=== PATIENT | male | born 1940 | race Caucasian/White ===

== ENCOUNTER → 2017-02-06 | Outpatient (CLI) | payer MEDICARE ==
[~2017-02-06] MED LIST: DCS100C PO; DICY20TA10 PO; HYDR28CR10 TOP; HYDROCORT TP; IMP25T; MINE99OI TOP; NITR-65 PO; NYST TP; SENN1TAB76 PO; SKIN TOP; [UNRECOGNIZED DRUG - OTHER] TOP; [UNRECOGNIZED DRUG - OTHER] TP
--- NOTE | 2017-02-06 15:29 | Diagnostic Imaging Report ---
PA and lateral views of the chest. INDICATION: Cough and congestion. FINDINGS: The lungs appear clear. The heart size is at the upper limits of normal. There is no effusion or pneumothorax. The mediastinum and melissa appear unremarkable. There is thoracic spine scoliotic curvature seen. IMPRESSION: No acute process. Dictated by: Dictated on workstation # [id number]
== END ==
LOC: RAD 15:02
PROVIDERS: ATTEND Family Medicine
DX: R09.89 Other specified symptoms and signs involving the circulatory and respiratory systems (principal); R05 Cough
CPT/HCPCS: 71020

== ENCOUNTER → 2017-05-08 | Outpatient (CLI) | payer MEDICARE | LOC: CARD 15:22 | PROVIDERS: ATTEND Family Medicine | DX: I49.9 Cardiac arrhythmia, unspecified (principal) | CPT/HCPCS: 93005 ==

== ENCOUNTER 2018-05-24 11:11 | Inpatient (IN) | payer MEDICARE ==
[~2018-05-24] VITALS: Ht 188 cm; Wt 83.0 kg
[2018-05-24] MEDS ORDERED: LACTATED RINGERS 1,000 ML IV ONE (11:19)
[2018-05-24] MEDS ORDERED: DIPHENOXYLATE/ATROPINE 2.5MG/0.025MG (LOMOTIL) TAB PO ONE (11:30)
--- NOTE | 2018-05-24 11:31 | ED GI ---
General Stated Complaint: WEAKNESS;DIARRHEA Source of Information: Family Exam Limitations: No Limitations History of Present Illness Date Seen by Provider: May 24, 2018 Time Seen by Provider: 11:15 Initial Comments This 77-year-old gentleman is brought to the emergency room by his brother with complaints of profound diarrhea and weakness. Patient became rather weak after having diarrhea this morning and went to the ground on his knees without injury aside from bruising on his knees. Patient was unable to get up on his own power. His brother, with whom he lives, was eventually able to get him up and into the car to bring him to the emergency room. He is afebrile. There is no vomiting. Patient is nonverbal due to advanced dementia. He has not spoken in 5 years according to his brother. Allergies and Home Medications Allergies Coded Allergies: Latex, Natural Rubber (Verified Allergy, Severe, RASH AND INFLAMMED, ) Home Medications Docusate Sodium 100 Mg Cap, 100 MG PO TID, (Reported) Hydrocortisone/Oatmeal/Aloe/E 28.4 Gm Cream.gm., TOP TID PRN for OPEN SKIN ON LEGS, (Reported) Nitrofurantoin/Nitrofuran Mac 100 Mg Capsule, 1 EACH PO BID FOR INFECTION Prescribed by: TOMAS BARLOW on 05/29/14711 Petrolatum,White 99 Gm Oint...g., TOP TID PRN for RASH, (Reported) APPLY TO BOTTOM TO PREVENT RASH Senna 1 Ea Tablet, 1 EA PO DAILY Prescribed by: TOMAS BARLOW on 05/29/14711 [Skin Cream W/Moistzr] , TOP DAILY, (Reported) APPLY TO LEGS FOR DRY SKIN Patient Home Medication List Home Medication List Reviewed: Yes Review of Systems Review of Systems Constitutional: see HPI, weakness EENTM: No Symptoms Reported Respiratory: No Symptoms Reported Cardiovascular: No Symptoms Reported Gastrointestinal: See HPI Genitourinary: No Symptoms Reported Musculoskeletal: no symptoms reported Skin: no symptoms reported Psychiatric/Neurological: See HPI Endocrine: No Symptoms Reported Hematologic/Lymphatic: No Symptoms Reported Past [id number]-Bbtwkw-Dmdduv Hx Past Med/Social Hx: Reviewed and Corrections made Immunizations Up To Date Date of Pneumonia Vaccine: May 27, 2014 Date of Influenza Vaccine: May 27, 2014 Past Medical History Surgeries: Yes Eye Surgery, Joint Replacement Respiratory: No Cardiac: Yes High Cholesterol, Hypertension Neurological: Yes Dementia Reproductive Disorders: No Genitourinary: Yes (incontinence) Kidney Stones Gastrointestinal: Yes Chronic Constipation, Gall Bladder Disease Musculoskeletal: Yes Arthritis, Fractures Endocrine: No HEENT: Yes Cataract Cancer: No Psychosocial: No Family Medical History Alzheimer's disease 03 MOTHER Cataracts 09 BROTHER Family history: Diabetes mellitus 09 BROTHER GERD 09 BROTHER Hiatal hernia 03 MOTHER Hypertension 09 BROTHER Parkinson's disease 03 FATHER TIAs 03 FATHER Physical Exam Vital Signs Vital Signs - First Documented 05/24/18 11:20 Temp 99.3 Pulse 84 Resp 20 B/P (MAP) 149/88 (108) Pulse Ox 96 O2 Delivery Room Air Capillary Refill : Height/Weight/BMI Height: 6'1.00" Weight: 209lbs. 0.6oz. 94.569413ax; BMI Method:Stated General Appearance: WD/WN, no apparent distress, other (general weakness) HEENT: normal ENT inspection, pharynx normal, other (disfigurement of the right pupil, chronic) Neck: normal inspection Respiratory: lungs clear, normal breath sounds, no respiratory distress, no accessory muscle use Cardiovascular: regular rate, rhythm, no edema, no murmur Gastrointestinal: normal bowel sounds, non tender, soft Extremities: normal inspection, no pedal edema Neurologic/Psychiatric: equipment service lead II-XII nml as tested, no motor/sensory deficits, alert, normal mood/affect, oriented x 3 Skin: normal color, warm/dry, ecchymosis (small bruising on the knees) Progress/Results/Core Measures Results/Orders Lab Results Laboratory Tests Test 05/24/18 11:32 05/24/18 12:43 Range/Units White Blood Count 11.2 H 4.3-11.0 10^3/uL Red Blood Count 4.75 4.35-5.85 10^6/uL Hemoglobin 14.3 13.3-17.7 G/DL Hematocrit 44 40-54 % Mean Corpuscular Volume 92 80-99 FL Mean Corpuscular Hemoglobin 30 25-34 PG Mean Corpuscular Hemoglobin Concent 33 32-36 G/DL Red Cell Distribution Width 14.2 10.0-14.5 % Platelet Count 206 130-400 10^3/uL Mean Platelet Volume 9.4 7.4-10.4 FL Neutrophils (%) (Auto) 90 H 42-75 % Lymphocytes (%) (Auto) 4 L 12-44 % Monocytes (%) (Auto) 6 0-12 % Eosinophils (%) (Auto) 0 0-10 % Basophils (%) (Auto) 0 0-10 % Neutrophils # (Auto) 10.0 H 1.8-7.8 X 10^3 Lymphocytes # (Auto) 0.4 L 1.0-4.0 X 10^3 Monocytes # (Auto) 0.7 0.0-1.0 X 10^3 Eosinophils # (Auto) 0.0 0.0-0.3 10^3/uL Basophils # (Auto) 0.0 0.0-0.1 10^3/uL Neutrophils % (Manual) 85 % Lymphocytes % (Manual) 2 % Monocytes % (Manual) 13 % Blood Morphology Comment NORMAL Sodium Level 142 135-145 MMOL/L Potassium Level 4.3 3.6-5.0 MMOL/L Chloride Level 110 H 98-107 MMOL/L Carbon Dioxide Level 21 21-32 MMOL/L Anion Gap 11 5-14 MMOL/L Blood Urea Nitrogen 24 H 7-18 MG/DL Creatinine 1.44 H 0.60-1.30 MG/DL Estimat Glomerular Filtration Rate 48 BUN/Creatinine Ratio 17 Glucose Level 158 H 70-105 MG/DL Calcium Level 9.0 8.5-10.1 MG/DL Corrected Calcium 9.1 8.5-10.1 MG/DL Magnesium Level 2.1 1.8-2.4 MG/DL Total Bilirubin 0.9 0.1-1.0 MG/DL Aspartate Amino Transf (AST/SGOT) 20 5-34 U/L Alanine Aminotransferase (ALT/SGPT) 12 0-55 U/L Alkaline Phosphatase 71 40-136 U/L Total Protein 6.7 6.4-8.2 GM/DL Albumin 3.9 3.2-4.5 GM/DL Urine Color YELLOW Urine Clarity VERY CLOUDY H Urine pH 8 5-9 Urine Specific [place] 1.010 L 1.016-1.022 Urine Protein 3+ H NEGATIVE Urine Glucose (UA) NEGATIVE NEGATIVE Urine Ketones NEGATIVE NEGATIVE Urine Nitrite NEGATIVE NEGATIVE Urine Bilirubin NEGATIVE NEGATIVE Urine Urobilinogen NORMAL NORMAL MG/DL Urine Leukocyte Esterase 3+ H NEGATIVE Urine RBC (Auto) 4+ H NEGATIVE Urine RBC 50-100 H /HPF Urine WBC TNTC H /HPF Urine Crystals NONE /LPF Urine Bacteria LARGE H /HPF Urine Casts NONE /LPF Urine Mucus NEGATIVE /LPF Urine Culture Indicated YES My Orders Orders - KUN CASTILLO MD Cbc With Automated Diff (05/24/18 11:19) Comprehensive Metabolic Panel (05/24/18 11:19) Magnesium (05/24/18 11:19) Saline Lock/Iv-Start (05/24/18 11:19) Lactated Ringers (Lr 1000 Ml Iv Solution (05/24/18 11:19) Diphenoxylate/Atropine Tablet (Lomotil T (05/24/18 11:30) Manual Differential (05/24/18 11:32) Ns Iv 1000 Ml (Sodium Chloride 0.9%) (05/24/18 12:16) Ua Culture If Indicated (05/24/18 12:30) Lidocaine 2% (Urojet) (Xylocaine Urojet) (05/24/18 12:30) Urine Culture (05/24/18 12:43) Ceftriaxone For Iv Use (Rocephin For I (05/24/18 13:15) Medications Given in ED Current Medications Medications Dose Ordered Sig/Yan Route Start Time Stop Time Status Last Admin Dose Admin Diphenoxylate HCl/ Atropine 2 ea ONCE ONCE PO 05/24/18 11:30 05/24/18 11:31 DC 05/24/18 11:47 2 EA Lactated Ringer's 1,000 ml @ 0 mls/hr Q0M ONCE IV 05/24/18 11:19 05/24/18 11:22 DC 05/24/18 11:45 1,000 MLS/HR Lidocaine HCl 10 ml ONCE ONCE TOP 05/24/18 12:30 05/24/18 12:31 DC 05/24/18 12:45 10 ML Sodium Chloride 1,000 ml @ 0 mls/hr Q0M ONCE IV 05/24/18 12:16 05/24/18 12:17 DC 05/24/18 12:25 1,000 MLS/HR Vital Signs/I&O 05/24/18 11:20 Temp 99.3 Pulse 84 Resp 20 B/P (MAP) 149/88 (108) Pulse Ox 96 O2 Delivery Room Air Progress Progress Note : Progress Note Patient received 2 L of IV fluids. He exhibited some acute renal insufficiency. Catheter urine specimen was obtained and was strongly indicative of urinary tract infection. Rocephin was given. Lomotil was given for the diarrhea. Patient appeared happy and smiled throughout his ER stay. He had no further diarrhea to my knowledge while in the ER. Patient did require 2 person assist to get into the bed. I do not think his brother would be able to manage him at home and his present condition. Departure Impression Primary Impression: Urinary tract infection Qualified Codes: N39.0 - Urinary tract infection, site not specified Additional Impressions: Diarrhea Qualified Codes: R19.7 - Diarrhea, unspecified Generalized weakness Advanced dementia Renal insufficiency Disposition: ADMITTED INPATIENT Condition: Improved Admissions Decision to Admit Reason: Admit from ER (General) Decision to Admit/Date: May 24, 2018 Time/Decision to Admit Time: 13:12 Departure-Patient Inst. Referrals: STEPHANY BARLOW MD (PCP/Family) Primary Care Physician KUN CASTILLO MD May 24, 2018 11:31
[2018-05-24 11:43] LABS: BASOPHILS % (AUTO) 0 % (0-10); EOSINOPHILS % (AUTO) 0 % (0-10); HEMATOCRIT 44 % (40-54); HEMOGLOBIN 14.3 G/DL (13.3-17.7); LYMPHOCYTES # (AUTO) 0.4 X 10^3 (1.0-4.0); LYMPHOCYTES % (AUTO) 4 % (12-44); MEAN CORPUSCULAR HEMOGLOBIN 30 PG (25-34); MEAN CORPUSCULAR HGB CONC 33 G/DL (32-36); MEAN CORPUSCULAR VOLUME 92 FL (80-99); MEAN PLATELET VOLUME 9.4 FL (7.4-10.4); MONOCYTES # (AUTO) 0.7 X 10^3 (0.0-1.0); MONOCYTES % (AUTO) 6 % (0-12); NEUTROPHILS % (AUTO) 90 % (42-75); PLATELET COUNT 206 10^3/uL (130-400); RED CELL DISTRIBUTION WIDTH 14.2 % (10.0-14.5); WHITE BLOOD COUNT 11.2 10^3/uL (4.3-11.0)
[2018-05-24 12:01] LABS: ALBUMIN 3.9 GM/DL (3.2-4.5); BILIRUBIN,TOTAL 0.9 MG/DL (0.1-1.0); CREATININE SERUM 1.44 MG/DL (0.60-1.30); MAGNESIUM 2.1 MG/DL (1.8-2.4); POTASSIUM 4.3 MMOL/L (3.6-5.0); TOTAL PROTEIN 6.7 GM/DL (6.4-8.2)
[2018-05-24 12:11] LABS: LYMPHOCYTES % (MANUAL) 2 %; MONOCYTES % (MANUAL) 13 %; NEUTROPHILS % (MANUAL) 85 %; RBC MORPH NORMAL
[2018-05-24] MEDS ORDERED: NS IV 1000 ML 1,000 ML IV ONE (12:16)
[2018-05-24] MEDS ORDERED: LIDOCAINE UROJET 2% GEL 10 ML PKG TOP ONE (12:30)
[2018-05-24 12:49] LABS: BILIRUBIN,URINE NEGATIVE (NEGATIVE); CLARITY,URINE VERY CLOUDY; COLOR,URINE YELLOW; GLUCOSE, URINE (UA) NEGATIVE (NEGATIVE); KETONES,URINE NEGATIVE (NEGATIVE); LEUKOCYTE ESTERASE ,URINE 3+ (NEGATIVE); NITRITE,URINE NEGATIVE (NEGATIVE); PH,URINE 8 (5-9); PROTEIN,URINE 3+ (NEGATIVE); UROBILINOGEN,URINE NORMAL (NORMAL)
[2018-05-24 13:01] LABS: BACTERIA,URINE LARGE /HPF; RBC,URINE 50-100 /HPF; WBC,URINE TNTC /HPF
[2018-05-24] MEDS ORDERED: cefTRIAXone FOR IV USE 1,000 MG in WATER (STERILE) FOR INJECTION 10 ML IV ONE (13:15)
[2018-05-24 14:00] VITALS: BP 153/75
--- NOTE | 2018-05-24 14:00 | NUR ---
CHUCK BYNUM admitted to room 433-1, with an admitting diagnosis of UTI, on 05/24/18 from ED via [facility], accompanied by STAFF AND BROTHER. BYNUMCHUCK introduced to surroundings, call light, bed controls, phone, TV, temperature control, lights, meal times, smoking policy, visitor policy, side rail policy, bathrooms and showers. Patient Rights given to patient in the handbook. BROTHER OF CHUCK BYNUM Malena verbalizes understanding that [facility] is not responsible for the loss or damage to any personal effects or valuables that are kept in the patients posession during their hospitalization. The following Patient Care Plans were discussed with the BROTHER OF CHUCK BYNUM Malena : Discharge Planning,PAIN, AND UTI. BROTHER OF FLETCHERCHUCK Malena verbalizes understanding of Interdisciplinary Patient Education. Patient and/or family were informed about the Rapid Response Team and its purpose.
--- NOTE | 2018-05-24 14:30 | NUR ---
BROTHER LEFT. ALL ADMIT QUESTIONS FROM PAST MED HX.
[2018-05-24 14:37] VITALS: BP 153/75
--- NOTE | 2018-05-24 14:46 | History & Physical-Hospitalist ---
History of Present Illness HPI/Chief Complaint Pt is a 77yoCM with a PMH of dementia who presented to the ER due to weakness and diarrhea. He is nonverbal at baseline and his brother provides all history. This morning he woke up with profound diarrhea and was very weak. Brother states he was fine yesterday and this was a sudden change today. He was hardly able to get him up from the bathroom. He was able to get him to the ER via private vehicle but it required two people to get him from the car to the room. He was found to have a UTI and was incredibly weak still when he is normally able to ambulate with a walker. He was admitted for IV abx and therapy. Source: patient Date Seen 05/24/18 Time Seen by a Provider: 14:41 Attending Physician Ang Loyd MD PCP Hank Hernandez MD Referring Physician Date of Admission May 24, 2018 at 13:41 Home Medications & Allergies Home Medications Reviewed patient Home Medication Reconciliation performed by pharmacy medication reconciliations phone technician and/or nursing. Patients Allergies have been reviewed. Allergies Allergies Coded Allergies Latex, Natural Rubber (Verified Allergy, Severe, RASH AND INFLAMMED, 05/26/14) Past Dxetfpr-Pmqbvq-Jffeba Hx Past Med/Social Hx: Reviewed Nursing Past Med/Soc Hx Patient Social History Employed/Student: retired Recent Foreign Travel: No Contact w/other who traveled: No Recent Infectious Disease Expo: No Immunizations Up To Date Date of Pneumonia Vaccine: May 27, 2014 Date of Influenza Vaccine: May 27, 2014 Past Medical History Surgeries: Eye Surgery, Joint Replacement Cardiac: High Cholesterol, Hypertension Neurological: Dementia Reproductive: No Genitourinary: Kidney Stones Gastrointestinal: Chronic Constipation, Gall Bladder Disease Musculoskeletal: Arthritis, Fractures HEENT: Cataract History of Blood Disorders: No Family History Reviewed Nursing Family Hx Alzheimer's disease 03 MOTHER Cataracts 09 BROTHER Family history: Diabetes mellitus 09 BROTHER GERD 09 BROTHER Hiatal hernia 03 MOTHER Hypertension 09 BROTHER Parkinson's disease 03 FATHER TIAs 03 FATHER Review of Systems ROS-Unable to Obtain: patient nonverbal at baseline and demented Constitutional: see HPI Physical Exam Physical Exam Vital Signs Vital Signs - First Documented 05/24/18 11:20 Temp 99.3 Pulse 84 Resp 20 B/P (MAP) 149/88 (108) Pulse Ox 96 O2 Delivery Room Air Capillary Refill : Less Than 3 Seconds Height, Weight, BMI Height: 6'2.00" Weight: 220lbs. 0.6oz. 99.305845ri; BMI Method:Stated General Appearance: No Apparent Distress, Chronically ill, Thin HEENT: PERRL/EOMI, Normal ENT Inspection, Moist Mucous Membranes; No Scleral Icterus (L), No Scleral Icterus (R) Neck: Normal Inspection, Supple; No Thyromegaly Respiratory: Lungs Clear, No Accessory Muscle Use, No Respiratory Distress Cardiovascular: Regular Rate, Rhythm, No Murmur Gastrointestinal: Normal Bowel Sounds, Non Tender, Soft Extremity: Normal Capillary Refill, No Calf Tenderness Neurologic/Psychiatric: Alert, Other (nonverbal, oriented unable to be assessed ) Skin: Normal Color, Warm/Dry Results Results/Procedures Labs Laboratory Tests 05/24/18 11:32 Patient resulted labs reviewed. Assessment/Plan Admission Diagnosis UTI with generalized debility Admission Status: Inpatient Order (span 2 midnights) Reason for Inpatient Admission: unable to walk, will likely need more than two midnights to stabilize for DC Diagnosis/Problems Diagnosis/Problems (1) Urinary tract infection Status: Acute Assessment & Plan: Await cultures Continue Rocephin Add probiotics Does not meet sepsis criteria Qualifiers: Urinary tract infection type: site unspecified Hematuria presence: without hematuria Qualified Codes: N39.0 - Urinary tract infection, site not specified (2) Renal insufficiency Status: Acute Assessment & Plan: Likely JAZ from hypovolemia Last creatinine on file was 0.9 1.4 today Continue IVF (3) Generalized weakness Status: Acute Assessment & Plan: Normally ambulatory and unable to walk today PT/OT (4) Diarrhea Status: Acute Assessment & Plan: Imodium prn Consider c-diff if persists Probiotics Qualifiers: Diarrhea type: unspecified type Qualified Codes: R19.7 - Diarrhea, unspecified (5) Advanced dementia Status: Acute Assessment & Plan: Nonverbal at baseline Pleasantly confused ANG LOYD MD May 24, 2018 14:46
[2018-05-24] MEDS ORDERED: DOCU100C37 PO (15:20)
--- NOTE | 2018-05-24 15:25 | Physical Therapy Evaluation ---
PT Evaluation-General Medical Diagnosis Admission Date May 24, 2018 at 13:41 Medical Diagnosis: UTI, diarrhea, dementia, weakness Onset Date: May 24, 2018 Therapy Diagnosis Therapy Diagnosis: impaired mobility Height/Weight Height (Feet): 6 Height (Inches): 2.00 Weight (Pounds): 183 Weight (Ounces): 0.0 Precautions Precautions/Isolations: Standard Precautions Referral Physician: Sariah Loyd MD Reason for Referral: Evaluation/Treatment Medical History Pertinent Medical History: Arthritis, Dementia, HTN Additional Medical History high cholesterol, kidney stones, chronic constipation, gall bladder disease, cataracts, surg (eye, joint replacement) Current History patient went to the ER with weakness and diarrhea Social History unknown, patient is non-verbal Prior/Core FIM Prior Level of Function Therapy Code Descriptions/Definitions Functional [place] Measure: 0=Not Assessed/NA 4=Minimal Assistance 1=Total Assistance 5=Supervision or Setup 2=Maximal Assistance 6=Modified [place] 3=Moderate Assistance 7=Complete [place] Therapy Quality Codes: 6 Independent with activity with or without an assistive device 5 Patient requires set up or clean up by helper. Patient completes activity by themselves 4 Supervision or touching assist (CGA). [place] provide cues , steadying assist 3 The helper provides less than half the effort to complete the activity 2 The helper provides more than half the effort to complete the activity 1 Dependent. The helper does all the effort to complete an activity 7 Patient refused to complete or attempt activity 9 The patient did not perform the activity before the current illness or injury 88 Not attempted due to Medical conditions or safety concerns Functional Abilities and Goals: Independent: Patient completed the activities by him/herself, with or without an assistive device, with no assistance from a helper. Needed Some Help: Patient needed partial assistance from another person to complete activities. Dependent: A helper completed the activities for the patient. Unknown: Not Applicable: unknown PT Evaluation-Current Subjective Patient in bed pre tx, seems to indicate that he will participate with PT but he is non-verbal. He nods his head yes when asked if he will participate with PT. Patient nods head yes when asked if he has pain and points to his knees when asked where. Objective Patient Orientation: Unable to Assess Transfers Therapy Code Descriptions/Definitions Functional [place] Measure: 0=Not Assessed/NA 4=Minimal Assistance 1=Total Assistance 5=Supervision or Setup 2=Maximal Assistance 6=Modified [place] 3=Moderate Assistance 7=Complete [place] Transfers (B, C, W/C) (FIM): 3 Scootin Rollin Supine to/from Sit: 3 Patient sits on the edge of the bed with assist, he refuses to stand at this time and points to his knees, seeming to indicate that it hurts his knees too much to stand. Patient only sits at the bedside for a minute before insisting that he lay back down. Balance Sitting Static: Fair Sitting Dynamic: Fair Assessment/Needs Patient is non-verbal but is able to indicate that he has pain in both knees. He needs mod assist to sit at the edge of the bed. Patient does not follow directions for strength testing and cannot participate in sensation testing. Patient back to bed post tx with nurse call, phone, tray, bed alarm on. Rehab Potential: Guarded PT Short Term Goals Short Term Goals Time Frame: May 31, 2018 Transfers (B,C,W/C) (FIM): 4 Gait (FIM): 1 Gait Distance Comment: 10' Gait Level of Assist: 4 Gait Assistive Device: FWW PT Plan Problem List Problem List: Activity Tolerance, Functional Strength, Safety, Balance, Gait, Transfer, Bed Mobility, ROM Treatment/Plan Treatment Plan: Continue Plan of Care Treatment Plan: Bed Mobility, Concurrent Therapy, Education, Functional Activity [place], Functional Strength, Gait, Safety, Therapeutic Exercise, Transfers Treatment Duration: May 31, 2018 Frequency: 6 times per week Estimated Hrs Per Day: .25 hour per day (15-30') Patient and/or Family Agrees t: Yes Safety Risks/Education Patient Education: Transfer Techniques, Correct Positioning, Safety Issues Teaching Recipient: Patient Teaching Methods: Demonstration, Discussion Response to Teaching: Reinforcement Needed Discharge Recommendations Plan Patient will perform bed mobility and transfer training, balance and endurance training, functional strengthening, gait training, and education, to improve functional mobility and independence at home. Therapy D/C Recommendations: Home w/ Family Support Time/GCodes Time In: 1505 Time Out: 1516 Total Billed Treatment Time: 11 Total Billed Treatment 1 visit CHRIS 11' BRETT BRIONES PT May 24, 2018 15:25
[2018-05-24] MEDS ORDERED: LOPERAMIDE 2 MG (IMODIUM) CAP PO PRN (15:45)
[2018-05-24] MEDS ORDERED: ZINC OXIDE 16% OINT (BUTT PASTE) 113 GM TUBE TOP PRN (15:45)
[2018-05-24] MEDS ORDERED: BENZONATATE 100 MG (TESSALON) CAPSULE PO PRN (16:00)
[2018-05-24] MEDS ORDERED: MILK OF MAGNESIA 400 MG/5 ML 30 ML UDC PO PRN (16:00)
[2018-05-24] MEDS ORDERED: ONDANSETRON 4 MG/2 ML (SDV) Z0FRAN IV PRN ×2 (16:00→16:30)
[2018-05-24] MEDS ORDERED: ANTACID SUSP 30 ML UDC (MYLANTA) PO PRN (16:00)
[2018-05-24] MEDS ORDERED: ACETAMINOPHEN 325 MG TABLET PO PRN (16:00)
[2018-05-24 16:07] VITALS: BP 156/70
[2018-05-24] MEDS ORDERED: FLU QUADRIvalent (5+ YOA) 2018-2019 (AFLURIA) 0.5 ML IM ONE (16:30)
[2018-05-24] MEDS ORDERED: DIPHENOXYLATE/ATROPINE 2.5MG/0.025MG (LOMOTIL) TAB PO PRN (16:30)
[2018-05-24] MEDS: LACTOBACILLUS ACIDOPHILUS (PROBIOTIC) CAPSULE PO SCH (16:57)
[2018-05-24] MEDS: NS IV 1000 ML 1,000 ML IV SCH (16:57)
[2018-05-24 19:25] VITALS: BP 139/64
[2018-05-24] MEDS: MELATONIN 3 MG TABLET PO PRN (22:14)
[2018-05-24 23:16] VITALS: BP 132/60
[2018-05-25] MEDS: NS IV 1000 ML 1,000 ML IV SCH ×2 (00:41→08:37)
[2018-05-25 03:25] VITALS: BP 119/67
[2018-05-25] MEDS: LACTOBACILLUS ACIDOPHILUS (PROBIOTIC) CAPSULE PO SCH ×3 (06:06→17:13)
[2018-05-25 08:00] VITALS: BP 153/71
--- NOTE | 2018-05-25 10:56 | Physical Therapy Daily Note ---
PT Daily Note-Current Subjective Patient is non verbal, however, does agree to up in recliner. Mental Status Patient Orientation: Non-Verbal/Aphasic Attachments: IV Transfers Therapy Code Descriptions/Definitions Functional [place] Measure: 0=Not Assessed/NA 4=Minimal Assistance 1=Total Assistance 5=Supervision or Setup 2=Maximal Assistance 6=Modified [place] 3=Moderate Assistance 7=Complete [place] Therapy Quality Codes: 6 Independent with activity with or without an assistive device 5 Patient requires set up or clean up by helper. Patient completes activity by themselves 4 Supervision or touching assist (CGA). [place] provide cues , steadying assist 3 The helper provides less than half the effort to complete the activity 2 The helper provides more than half the effort to complete the activity 1 Dependent. The helper does all the effort to complete an activity 7 Patient refused to complete or attempt activity 9 The patient did not perform the activity before the current illness or injury 88 Not attempted due to Medical conditions or safety concerns Transfers (B, C, W/C) (FIM): 4 Scootin Rollin Supine to/from Sit: 5 Sit to/from Stand: 4 Bed to/from Chair: 4 Gait Training Gait (FIM): 1 Distance (FIM): 1=up to 49 ft Distance: 5' Gait Level of Assist: 4 Gait Persons Needed: 1 Gait Assistive Device: None declined to use FWW and ambulate, however, did to chair Exercises Seated Therapy Exercises: Ankle pumps, Long arc quads, Hip flexion Seated Reps: 15 (AAROM initially to demonstrate exercise/AROM after demonstration) Assessment Patient is up in recliner and RN in to place chair alarm secondary to patient is impulsive and unaware of safety concerns. PT Short Term Goals Short Term Goals Time Frame: May 31, 2018 Transfers (B,C,W/C) (FIM): 4 Gait (FIM): 1 Gait Distance Comment: 10' Gait Level of Assist: 4 Gait Assistive Device: FWW PT Plan Treatment/Plan Treatment Plan: Continue Plan of Care Treatment Plan: Bed Mobility, Concurrent Therapy, Education, Functional Activity [place], Functional Strength, Gait, Safety, Therapeutic Exercise, Transfers Treatment Duration: May 31, 2018 Frequency: 6 times per week Estimated Hrs Per Day: .25 hour per day (15-30') Patient and/or Family Agrees t: Yes Time/GCodes Time In: 1000 Time Out: 1008 Total Billed Treatment Time: 8 Total Billed Treatment 1 visit FA 8 min RENATO CHAVEZ PT May 25, 2018 10:56
[2018-05-25] MEDS ORDERED: FUROSEMIDE 40 MG/4 ML INJ (LASIX) IVP NR (11:15)
[2018-05-25] MEDS ORDERED: amLODIPine 2.5MG (NORVASC) TAB PO NR (11:15)
--- NOTE | 2018-05-25 11:23 | Progress Note-Hospitalist ---
Subjective HPI/CC On Admission Date Seen by Provider: May 25, 2018 Time Seen by Provider: 11:19 Pt is a 77yoCM with a PMH of dementia who presented to the ER due to weakness and diarrhea. He is nonverbal at baseline and his brother provides all history. This morning he woke up with profound diarrhea and was very weak. Brother states he was fine yesterday and this was a sudden change today. He was hardly able to get him up from the bathroom. He was able to get him to the ER via private vehicle but it required two people to get him from the car to the room. He was found to have a UTI and was incredibly weak still when he is normally able to ambulate with a walker. He was admitted for IV abx and therapy. Subjective/Events-last exam Pt is sitting up in chair. Non verbal. No ROS possible. Objective Exam Vital Signs Vital Signs Date Time Temp Pulse Resp B/P (MAP) Pulse Ox O2 Delivery O2 Flow Rate FiO2 05/25/18 08:27 Room Air 05/25/18 08:00 97.6 81 18 153/71 (98) 94 Capillary Refill : Less Than 3 SecondsLess Than 3 Seconds General Appearance: No Apparent Distress, Chronically ill, Thin Neck: No Thyromegaly Respiratory: Lungs Clear, No Accessory Muscle Use, No Respiratory Distress Cardiovascular: Regular Rate, Rhythm, No Murmur Gastrointestinal: Normal Bowel Sounds, Non Tender, Soft Neurologic/Psychiatric: Alert, Other (nonverbal, orientation unable to be assessed) Results/Procedures Lab Laboratory Tests 05/24/18 11:32 Patient resulted labs reviewed. Assessment/Plan Assessment and Plan Assess & Plan/Chief Complaint UTI Diagnosis/Problems Diagnosis/Problems (1) Urinary tract infection Status: Acute Assessment & Plan: Cultures pending Continue Rocephin Continue probiotics Does not meet sepsis criteria Qualifiers: Urinary tract infection type: site unspecified Hematuria presence: without hematuria Qualified Codes: N39.0 - Urinary tract infection, site not specified (2) Renal insufficiency Status: Acute Assessment & Plan: Check in AM (3) Generalized weakness Status: Acute Assessment & Plan: Continue PT/OT clinical services assistant consulted- may need placement (4) Diarrhea Status: Acute Assessment & Plan: Imodium prn Probiotics Qualifiers: Diarrhea type: unspecified type Qualified Codes: R19.7 - Diarrhea, unspecified (5) Advanced dementia Status: Acute Assessment & Plan: Nonverbal at baseline Pleasantly confused Clinical Quality Measures DVT/VTE Risk/Contraindication: Risk Factor Score Per Nursin RFS Level Per Nursing on Admit: 4+=Very High ANG ERVIN MD May 25, 2018 11:23
[2018-05-25 12:00] VITALS: BP 146/65
[2018-05-25] MEDS: cefTRIAXone 1,000 MG/SWFI 10 ML IV PUSH IV SCH ×2 (13:02)
--- NOTE | 2018-05-25 14:14 | Occupational Therapy Eval ---
OT Evaluation-General/PLF Medical Diagnosis Admission Date May 24, 2018 at 13:41 Medical Diagnosis: UTI, diarrhea, dementia, weakness Onset Date: May 24, 2018 Therapy Diagnosis Therapy Diagnosis: debility Height/Weight Height (Feet): 6 Height (Inches): 2.00 Weight (Pounds): 183 Weight (Ounces): 0.0 Precautions Precautions/Isolations: Fall Prevention, Standard Precautions Safety Interventions: Bed Exit Alarm Referral Physician: Sariah Loyd MD Medical History Pertinent Medical History: Arthritis, Dementia, HTN Additional Medical History high cholesterol, kidney stones, chronic constipation, gallbladder disease, cataracts Current History Pt admitted with UTI, diarrhea, and weakness Reviewed History: Yes ADL-Prior Level of Function Therapy Code Descriptions/Definitions Functional [place] Measure: 0=Not Assessed/NA 4=Minimal Assistance 1=Total Assistance 5=Supervision or Setup 2=Maximal Assistance 6=Modified [place] 3=Moderate Assistance 7=Complete [place] Therapy Quality Codes: 6 Independent with activity with or without an assistive device 5 Patient requires set up or clean up by helper. Patient completes activity by themselves 4 Supervision or touching assist (CGA). [place] provide cues , steadying assist 3 The helper provides less than half the effort to complete the activity 2 The helper provides more than half the effort to complete the activity 1 Dependent. The helper does all the effort to complete an activity 7 Patient refused to complete or attempt activity 9 The patient did not perform the activity before the current illness or injury 88 Not attempted due to Medical conditions or safety concerns Functional Abilities and Goals: Independent: Patient completed the activities by him/herself, with or without an assistive device, with no assistance from a helper. Needed Some Help: Patient needed partial assistance from another person to complete activities. Dependent: A helper completed the activities for the patient. Unknown: Not Applicable: ADL PLOF Comments Pt is non-verbal and unable to provide any information regarding PLOF. RN states pt lives with brother who is his caregiver. Self Care: Unknown Functional Cognition: Unknown OT Current Status Subjective Pt in bed. Pt is nonverbal, but nods head when asked to participate in therapy. Mental Status/Objective Patient Orientation: Unable to Assess Current Upper Extremity ROM Pt unable to follow simple commands for ROM testing. Pt allows PROM of UE which appears to be grossly functional. Pt moves UE spontaneously. Upper Extremity Strength Pt unable to follow commands for MMT ADL-Treatment ADL-Current RN reports pt is able to feed himself, but makes a mess. Per RN report pt has been incontinent and gown and linens were just changed with total assist. When given a washcloth, pt is able to wash face without assist. Attempted to have pt sit EOB, but pt resists movement and shakes head "no." Pt is nonverbal and is unable to answer questions. Pt occasionally points at things, but is unable to express further. Pt resting in bed with needs met after session. Therapy Code Descriptions/Definitions Functional [place] Measure: 0=Not Assessed/NA 4=Minimal Assistance 1=Total Assistance 5=Supervision or Setup 2=Maximal Assistance 6=Modified [place] 3=Moderate Assistance 7=Complete [place] Therapy Quality Codes: 6 Independent with activity with or without an assistive device 5 Patient requires set up or clean up by helper. Patient completes activity by themselves 4 Supervision or touching assist (CGA). [place] provide cues , steadying assist 3 The helper provides less than half the effort to complete the activity 2 The helper provides more than half the effort to complete the activity 1 Dependent. The helper does all the effort to complete an activity 7 Patient refused to complete or attempt activity 9 The patient did not perform the activity before the current illness or injury 88 Not attempted due to Medical conditions or safety concerns OT Education/Plan Problem List/Assessment Assessment: No Skilled OT Needs ID'd Pt admitted to hospital with UTI, diarrhea, and weakness. Pt is able to feed himself and wash face with set up. Pt does not follow simple commands or participate in any other functional activities during evaluation. Therefore, no skilled OT is indicated at this time. Will d/c OT. Discharge Recommendations Plan/Recommendations: Discontinue OT Treatment Plan/Plan of Care Treatment Duration: May 25, 2018 Frequency: 1 time per week (one time-evaluation only) Estimated Hrs Per Day: Other (evaluation only) Rehab Potential: Guarded Time/GCodes Start Time: 09:40 Stop Time: 09:55 Total Time Billed (hr/min): 15 Billed Treatment Time 1 visit, CHRIS(15minutes) CLARA PARRA OT May 25, 2018 14:14
[2018-05-25 16:00] VITALS: BP 145/62
--- NOTE | 2018-05-25 16:43 | NUR ---
INCREASED CONFUSION AND GETTING UP OUT OF CHAIR AND OUT OF BED. SETTING BED AND CHAIR ALARM OFF FREQUENTLY. REQUIRES STAFF TO BE CLOSE PT VERY UNSTEADY ON FEET.
--- NOTE | 2018-05-25 17:12 | NUR ---
CONTINUES TO GET IN AND OUT OF BED BY SELF, SETTING OFF ALARM. TANGLED IN SHEETS AND THIS RN JUST CAUGHT PT AND GOT HIM SITUATED IN CHAIR. [employer] CONTRACTOR NOTIFIED. PT MADE 1:1.
--- NOTE | 2018-05-25 18:37 | NUR ---
REMAINS VERY FIDGETY, BUT NOT TRYING TO GET UP AND DOWN BY SELF WITH SITTER AT BEDSIDE.
[2018-05-25 20:15] VITALS: BP 141/63
[2018-05-25] MEDS: MELATONIN 3 MG TABLET PO PRN (20:45)
[2018-05-25 23:09] VITALS: BP 140/61
[2018-05-26 03:13] VITALS: BP 149/70
[2018-05-26] MEDS: LACTOBACILLUS ACIDOPHILUS (PROBIOTIC) CAPSULE PO SCH ×3 (05:43→17:30)
[2018-05-26 05:46] LABS: BASOPHILS % (AUTO) 0 % (0-10); EOSINOPHILS # (AUTO) 0.1 10^3/uL (0.0-0.3); EOSINOPHILS % (AUTO) 1 % (0-10); HEMATOCRIT 37 % (40-54); HEMOGLOBIN 12.4 G/DL (13.3-17.7); LYMPHOCYTES # (AUTO) 0.9 X 10^3 (1.0-4.0); LYMPHOCYTES % (AUTO) 11 % (12-44); MEAN CORPUSCULAR HEMOGLOBIN 31 PG (25-34); MEAN CORPUSCULAR HGB CONC 33 G/DL (32-36); MEAN CORPUSCULAR VOLUME 92 FL (80-99); MEAN PLATELET VOLUME 9.5 FL (7.4-10.4); MONOCYTES # (AUTO) 0.8 X 10^3 (0.0-1.0); MONOCYTES % (AUTO) 9 % (0-12); NEUTROPHILS # (AUTO) 6.9 X 10^3 (1.8-7.8); NEUTROPHILS % (AUTO) 79 % (42-75); PLATELET COUNT 172 10^3/uL (130-400); WHITE BLOOD COUNT 8.8 10^3/uL (4.3-11.0)
[2018-05-26 06:07] LABS: BUN/CREATININE RATIO 22; CALCIUM 8.5 MG/DL (8.5-10.1); CARBON DIOXIDE 20 MMOL/L (21-32); CHLORIDE 112 MMOL/L (98-107); CREATININE SERUM 0.74 MG/DL (0.60-1.30); GFR ESTIMATED > 60; GLUCOSE 103 MG/DL (70-105); POTASSIUM 3.7 MMOL/L (3.6-5.0); SODIUM 140 MMOL/L (135-145)
[2018-05-26 08:00] VITALS: BP 160/70
--- NOTE | 2018-05-26 09:35 | Progress Note-Hospitalist ---
Subjective HPI/CC On Admission Date Seen by Provider: May 26, 2018 Time Seen by Provider: 09:31 Pt is a 77yoCM with a PMH of dementia who presented to the ER due to weakness and diarrhea. He is nonverbal at baseline and his brother provides all history. This morning he woke up with profound diarrhea and was very weak. Brother states he was fine yesterday and this was a sudden change today. He was hardly able to get him up from the bathroom. He was able to get him to the ER via private vehicle but it required two people to get him from the car to the room. He was found to have a UTI and was incredibly weak still when he is normally able to ambulate with a walker. He was admitted for IV abx and therapy. Subjective/Events-last exam Pt laying in bed. Pleasantly confused. Unable to participate in ROS. Objective Exam Vital Signs Vital Signs Date Time Temp Pulse Resp B/P (MAP) Pulse Ox O2 Delivery O2 Flow Rate FiO2 05/26/18 08:00 98.6 69 22 160/70 (100) 98 Room Air Capillary Refill : Less Than 3 SecondsLess Than 3 Seconds General Appearance: No Apparent Distress, Chronically ill, Thin Neck: No Thyromegaly Respiratory: Lungs Clear, No Accessory Muscle Use, No Respiratory Distress Cardiovascular: Regular Rate, Rhythm, No Murmur Gastrointestinal: Normal Bowel Sounds, Non Tender, Soft Extremity: No Calf Tenderness, No Pedal Edema Neurologic/Psychiatric: Alert, Other (nonverbal, orientation unable to be assessed) Results/Procedures Lab Laboratory Tests 05/26/18 05:34 Patient resulted labs reviewed. Assessment/Plan Assessment and Plan Assess & Plan/Chief Complaint UTI Diagnosis/Problems Diagnosis/Problems (1) Urinary tract infection Status: Acute Assessment & Plan: Cultures growing proteus sensitivities pending Continue Rocephin Continue probiotics Does not meet sepsis criteria Qualifiers: Urinary tract infection type: site unspecified Hematuria presence: without hematuria Qualified Codes: N39.0 - Urinary tract infection, site not specified (2) Generalized weakness Status: Acute Assessment & Plan: Continue PT/OT pharmacy services representative consulted- may need placement (3) Renal insufficiency Status: Acute Assessment & Plan: Resolved (4) Diarrhea Status: Acute Assessment & Plan: Imodium prn Probiotics Qualifiers: Diarrhea type: unspecified type Qualified Codes: R19.7 - Diarrhea, unspecified (5) Advanced dementia Status: Acute Assessment & Plan: Nonverbal at baseline Pleasantly confused Clinical Quality Measures DVT/VTE Risk/Contraindication: Risk Factor Score Per Nursin RFS Level Per Nursing on Admit: 4+=Very High ANG ERVIN MD May 26, 2018 09:35
--- NOTE | 2018-05-26 10:00 | NUR ---
SITTER AT BEDSIDE, TRIES TO GET UP BY SELF, BED ALARM ON, USING URINAL CLEAR YELLOW URINE
[2018-05-26] MEDS: cefTRIAXone 1,000 MG/SWFI 10 ML IV PUSH IV SCH ×2 (11:42)
[2018-05-26 11:56] VITALS: BP 149/97
--- NOTE | 2018-05-26 11:58 | Physical Therapy Daily Note ---
PT Daily Note-Current Subjective Sitter reports he tries to get out of bed when not attended. Transfers Therapy Code Descriptions/Definitions Functional [place] Measure: 0=Not Assessed/NA 4=Minimal Assistance 1=Total Assistance 5=Supervision or Setup 2=Maximal Assistance 6=Modified [place] 3=Moderate Assistance 7=Complete [place] Therapy Quality Codes: 6 Independent with activity with or without an assistive device 5 Patient requires set up or clean up by helper. Patient completes activity by themselves 4 Supervision or touching assist (CGA). [place] provide cues , steadying assist 3 The helper provides less than half the effort to complete the activity 2 The helper provides more than half the effort to complete the activity 1 Dependent. The helper does all the effort to complete an activity 7 Patient refused to complete or attempt activity 9 The patient did not perform the activity before the current illness or injury 88 Not attempted due to Medical conditions or safety concerns Transfers (B, C, W/C) (FIM): 5 Sit to/from Stand: 5 Bed to/from Chair: 5 verbal cues for safety and use of hand rails to come to standing. Gait Training Gait (FIM): 2 Distance (FIM): 1=up to 49 ft Distance: 20 Gait Level of Assist: 4 Gait Persons Needed: 1 Gait Assistive Device: FWW Ambulated with instructions for safety and use of FWW. Exercises Supine Ex: Lower trunk rotation, Heel Slides, Short Arc Quads, Straight leg raise, Hip abd/add Assessment Pt showing gains with mobility. Able to stand this session and walk a short distance without physical assist. Needs tactile and verbal cues for sequence and safety. PT Short Term Goals Short Term Goals Time Frame: May 31, 2018 Gait (FIM): 1 Gait Distance Comment: 10' Gait Level of Assist: 4 Gait Assistive Device: FWW PT Plan Treatment/Plan Treatment Plan: Continue Plan of Care Treatment Plan: Bed Mobility, Concurrent Therapy, Education, Functional Activity [place], Functional Strength, Gait, Safety, Therapeutic Exercise, Transfers Treatment Duration: May 31, 2018 Frequency: 6 times per week Estimated Hrs Per Day: .25 hour per day (15-30') Patient and/or Family Agrees t: Yes Time/GCodes Time In: 845 Time Out: 900 Total Billed Treatment Time: 15 Total Billed Treatment visit, exercise 10 min, gait 5 minutes ATA SMITH PT May 26, 2018 11:58
[2018-05-26 16:40] VITALS: BP 151/65
[2018-05-26 19:14] VITALS: BP 149/66
[2018-05-26 23:25] VITALS: BP 148/68
[2018-05-27 03:25] VITALS: BP 160/71
[2018-05-27] MEDS: LACTOBACILLUS ACIDOPHILUS (PROBIOTIC) CAPSULE PO SCH ×2 (05:26→12:08)
[2018-05-27 07:30] VITALS: BP 160/73
--- NOTE | 2018-05-27 10:00 | NUR ---
SITTER AT BEDSIDE,
[2018-05-27] MEDS ORDERED: CEPH-507 PO (11:19)
[2018-05-27] MEDS ORDERED: LACT1CAP7 PO (11:19)
--- NOTE | 2018-05-27 11:22 | Discharge Inst-Simple/Standard ---
Discharge Inst-Standard Discharge Medications New, Converted or Re-Newed RX: Transmitted to Pharmacy Patient Instructions/Follow Up Plan of Care/Instructions/FU: Please continue to take your medications as written. Please follow up with Dr Hernandez next week to follow up this hospital stay. Activity as Tolerated: Yes Discharge Diet: Soft Diet Return to The Hospital For: Fever, weakness, if you feel you are getting worse. Planned Outpatient Orders/Ref. Pneu Vac Indicated: Yes ANG ERVIN MD May 27, 2018 11:22
--- NOTE | 2018-05-27 11:24 | Discharge Summary-Hospitalist ---
Diagnosis/Chief Complaint Date of Admission May 24, 2018 at 13:41 Date of Discharge Discharge Date: May 27, 2018 Admission Diagnosis UTI with generalized debility Discharge Diagnosis (1) Urinary tract infection Status: Acute Assessment & Plan: Cultures growing proteus sensitivities pending Continue Rocephin Continue probiotics Does not meet sepsis criteria (2) Generalized weakness Status: Acute Assessment & Plan: Continue PT/OT computing services director consulted- may need placement (3) Renal insufficiency Status: Acute Assessment & Plan: Resolved (4) Diarrhea Status: Acute Assessment & Plan: Imodium prn Probiotics (5) Advanced dementia Status: Acute Assessment & Plan: Nonverbal at baseline Pleasantly confused Discharge Summary Discharge Physical Exam Allergies: Coded Allergies: Latex, Natural Rubber (Verified Allergy, Severe, RASH AND INFLAMMED, ) Vitals & I&Os Vital Signs Date Time Temp Pulse Resp B/P (MAP) Pulse Ox O2 Delivery O2 Flow Rate FiO2 05/27/18 07:30 98.1 62 20 160/73 (102) 97 Room Air Hospital Course Labs (last 24 hrs) Microbiology 05/24/18 Urine Culture - Final, Complete Proteus mirabilis Patient resulted labs reviewed. Discharge Home Medications: Active Scripts Active Acidophilus-Pectin Capsule (Lactobacillus Acidophilus/Pect) 1 Each Capsule 2 Each PO TIDWM Keflex (Cephalexin) 500 Mg Capsule 500 Mg PO BID Reported Docusate Sodium 100 Mg Capsule 100 Mg PO DAILY Instructions to patient/family Please see electronic discharge instructions given to patient. Clinical Quality Measures DVT/VTE Risk/Contraindication: Risk Factor Score Per Nursin RFS Level Per Nursing on Admit: 4+=Very High Problem Qualifiers (1) Urinary tract infection: Urinary tract infection type: site unspecified Hematuria presence: without hematuria Qualified Codes: N39.0 - Urinary tract infection, site not specified (2) Diarrhea: Diarrhea type: unspecified type Qualified Codes: R19.7 - Diarrhea, unspecified ANG ERVIN MD May 27, 2018 11:24
[2018-05-27] MEDS ORDERED: LIDOCAINE 1% INJ 20 ML 20 ML VIAL INJ NR (11:57)
[2018-05-27] MEDS ORDERED: cefTRIAXone 1,000 MG/2.86 ml vial (IM ONLY) IM NR (11:58)
--- NOTE | 2018-05-27 12:00 | NUR ---
DR ERVIN HERE, ORDERED TO DISCHARGE, INSTRUCTED NURSE TO GIVEN ROCEPHIN BEFORE DISCHARGE, PATIENT DOES NOT HAVE IV ACCESS AT THIS TIME, DR ERVIN INSTRUCTED TO GIVE IM BEFORE DISCHARGE
[2018-05-27] MEDS: cefTRIAXone 1,000 MG/SWFI 10 ML IV PUSH IV SCH ×2 (12:10)
--- NOTE | 2018-05-27 12:10 | NUR ---
DISCHARGE INSTRUCTIONS GIVEN TO BROTHER, VERBALIZED UNDERSTANDING
[2018-05-27 13:00] VITALS: BP 160/73
--- NOTE | 2018-05-27 13:00 | NUR ---
FLETCHERCHUCK Guy demonstrates understanding of discharge instructions and accurately returns instructions upon questioning. Copy of Post-Discharge Instructions and Medication Discharge Instructions given to PATIENT. BYNUMCHUCK is able to manage continuing needs after discharge WITH ASSISTANCE FROM BROTHER. Patients belongings returned to PATIENT. Skin dry and intact; no breakdown noted. Patient discharged from [facility] on 05/27/18 at 1300. CHUCK BYNUM Malena left floor via W/C, accompanied by STAFF.
== END 2018-05-27 13:00 | disposition home or self-care (01) | DRG 690 ==
LOC: EDUNIT# 11:11 → ER 11:12 → 4TH 13:41
PROVIDERS: ADMIT Family Medicine; ATTEND Family Medicine
DX: N39.0 Urinary tract infection, site not specified (principal); R53.1 Weakness; N28.9 Disorder of kidney and ureter, unspecified; R19.7 Diarrhea, unspecified; F03.90 Unspecified dementia, unspecified severity, without behavioral disturbance, psychotic disturbance, mood disturbance, and anxiety; B96.4 Proteus (mirabilis) (morganii) as the cause of diseases classified elsewhere; I10 Essential (primary) hypertension; E78.00 Pure hypercholesterolemia, unspecified; K59.09 Other constipation; M19.91 Primary osteoarthritis, unspecified site; R32 Unspecified urinary incontinence; Z87.442 Personal history of urinary calculi; Z96.9 Presence of functional implant, unspecified
CPT/HCPCS: 36415; 51702; 80048; 80053; 81000; 83735; 85007; 85025; 85027; 87077; 87088; 87186; 96361; 96374

== ENCOUNTER 2018-06-14 10:23 | Inpatient (IN) | payer MEDICARE ==
[~2018-06-14] VITALS: Ht 188 cm; Wt 81.6 kg
[~2018-06-14 10:23] MED LIST changes: +CEPH-507 PO; +DOCU100C37 PO; +LACT1CAP7 PO
[2018-06-14 10:48] LABS: BASOPHILS % (AUTO) 0 % (0-10); EOSINOPHILS % (AUTO) 0 % (0-10); HEMATOCRIT 44 % (40-54); HEMOGLOBIN 14.5 G/DL (13.3-17.7); LYMPHOCYTES # (AUTO) 1.3 X 10^3 (1.0-4.0); LYMPHOCYTES % (AUTO) 9 % (12-44); MEAN CORPUSCULAR HEMOGLOBIN 30 PG (25-34); MEAN CORPUSCULAR HGB CONC 33 G/DL (32-36); MEAN CORPUSCULAR VOLUME 92 FL (80-99); MEAN PLATELET VOLUME 9.5 FL (7.4-10.4); MONOCYTES # (AUTO) 1.4 X 10^3 (0.0-1.0); MONOCYTES % (AUTO) 9 % (0-12); NEUTROPHILS # (AUTO) 12.5 X 10^3 (1.8-7.8); NEUTROPHILS % (AUTO) 82 % (42-75); PLATELET COUNT 257 10^3/uL (130-400); RED CELL DISTRIBUTION WIDTH 13.8 % (10.0-14.5); WHITE BLOOD COUNT 15.3 10^3/uL (4.3-11.0)
[2018-06-14 10:59] LABS: BILIRUBIN,URINE NEGATIVE (NEGATIVE); CLARITY,URINE SLIGHTLY CLOUDY; COLOR,URINE YELLOW; GLUCOSE, URINE (UA) NEGATIVE (NEGATIVE); KETONES,URINE 1+ (NEGATIVE); LEUKOCYTE ESTERASE ,URINE 3+ (NEGATIVE); NITRITE,URINE NEGATIVE (NEGATIVE); PH,URINE 8 (5-9); PROTEIN,URINE 3+ (NEGATIVE); UROBILINOGEN,URINE NORMAL (NORMAL)
--- NOTE | 2018-06-14 10:59 | ED General ---
General Chief Complaint: Abdominal/GI Problems Stated Complaint: WEAKNESS Source of Information: Caregiver, Family Exam Limitations: Physical Impairments History of Present Illness Date Seen by Provider: Jun 14, 2018 Time Seen by Provider: 10:57 Initial Comments To ER from home where he lives and is taken care of by his brother. He is nonverbal secondary to severe dementia. He just finished antibiotics Keflex on for urinary tract infection and was admitted on 05/24/18. Brother states that upon getting him up this morning he had diarrhea and loss of bladder control and seemed more weak as he was unable to stand or walk and typically he is able to ambulate with the use of a walker. They had previously discussed usp placement but are unable to afford that as the brother states it would cost $5000 a month.. Timing/Duration: 4-6 Hours, 1-2 Days Severity: Moderate Associated Systoms: Weakness Allergies and Home Medications Allergies Coded Allergies: Latex, Natural Rubber (Verified Allergy, Severe, RASH AND INFLAMMED, ) Home Medications Cephalexin 500 Mg Capsule, 500 MG PO BID Prescribed by: ANG ERVIN on 05/27/18 1119 Lactobacillus Acidophilus/Pect 1 Each Capsule, 2 EACH PO TIDWM Prescribed by: ANG ERVIN on 05/27/18 1119 Patient Home Medication List Home Medication List Reviewed: Yes Review of Systems Review of Systems Constitutional: see HPI, weakness, other (unable to obtain due to dementia) Past Qolkofd-Syoubm-Fagfma Hx Immunizations Up To Date Date of Pneumonia Vaccine: May 27, 2014 Date of Influenza Vaccine: May 27, 2014 Past Medical History Surgeries: Yes Eye Surgery, Joint Replacement Respiratory: No Cardiac: Yes High Cholesterol, Hypertension Neurological: Yes Dementia Reproductive Disorders: No Genitourinary: Yes (incontinence) Kidney Stones Gastrointestinal: Yes Chronic Constipation, Gall Bladder Disease Musculoskeletal: Yes Arthritis, Fractures Endocrine: No HEENT: Yes Cataract Cancer: No Psychosocial: No Integumentary: No Blood Disorders: No Family Medical History Alzheimer's disease 03 MOTHER Cataracts 09 BROTHER Family history: Diabetes mellitus 09 BROTHER GERD 09 BROTHER Hiatal hernia 03 MOTHER Hypertension 09 BROTHER Parkinson's disease 03 FATHER TIAs 03 FATHER Physical Exam Vital Signs Vital Signs - First Documented 06/14/18 10:25 Temp 97.7 Pulse 86 Resp 18 B/P (MAP) 155/67 (96) Pulse Ox 96 Capillary Refill : Height, Weight, BMI Height: 6'2.00" Weight: 183lbs. 0.0oz. 83.046984ws; 23.5 BMI Method:Stated General Appearance: No Apparent Distress, WD/WN, Chronically ill, Other (frail) Eyes: Bilateral Eye Normal Inspection, Bilateral Eye PERRL, Bilateral Eye EOMI HEENT: PERRL/EOMI, Normal ENT Inspection Neck: Full Range of Motion, Normal Inspection Respiratory: Normal Breath Sounds, No Accessory Muscle Use, No Respiratory Distress Cardiovascular: Regular Rate, Rhythm, Normal Peripheral Pulses Gastrointestinal: Non Tender, Soft Extremity: Normal Capillary Refill, Normal Inspection Neurologic/Psychiatric: Alert, Other (he is alert with eyes open looking around the room but he whispers nonsensical mumbling) Skin: Normal Color, Warm/Dry Progress/Results/Core Measures Suspected Sepsis SIRS Temperature: Pulse: Respiratory Rate: Laboratory Tests 06/14/18 10:30: White Blood Count 15.3H Blood Pressure / Mean: Laboratory Tests 06/14/18 10:30: Creatinine 1.16, INR Comment 1.1, Platelet Count 257, Total Bilirubin 1.1H Results/Orders Lab Results Laboratory Tests Test 06/14/18 10:30 06/14/18 10:35 Range/Units White Blood Count 15.3 H 4.3-11.0 10^3/uL Red Blood Count 4.82 4.35-5.85 10^6/uL Hemoglobin 14.5 13.3-17.7 G/DL Hematocrit 44 40-54 % Mean Corpuscular Volume 92 80-99 FL Mean Corpuscular Hemoglobin 30 25-34 PG Mean Corpuscular Hemoglobin Concent 33 32-36 G/DL Red Cell Distribution Width 13.8 10.0-14.5 % Platelet Count 257 130-400 10^3/uL Mean Platelet Volume 9.5 7.4-10.4 FL Neutrophils (%) (Auto) 82 H 42-75 % Lymphocytes (%) (Auto) 9 L 12-44 % Monocytes (%) (Auto) 9 0-12 % Eosinophils (%) (Auto) 0 0-10 % Basophils (%) (Auto) 0 0-10 % Neutrophils # (Auto) 12.5 H 1.8-7.8 X 10^3 Lymphocytes # (Auto) 1.3 1.0-4.0 X 10^3 Monocytes # (Auto) 1.4 H 0.0-1.0 X 10^3 Eosinophils # (Auto) 0.0 0.0-0.3 10^3/uL Basophils # (Auto) 0.0 0.0-0.1 10^3/uL Neutrophils % (Manual) 77 % Lymphocytes % (Manual) 12 % Monocytes % (Manual) 11 % Eosinophils % (Manual) 0 % Basophils % (Manual) 0 % Band Neutrophils 0 % Elliptocytes SLIGHT Prothrombin Time 14.5 12.2-14.7 SEC INR Comment 1.1 0.8-1.4 Activated Partial Thromboplast Time 32 24-35 SEC Sodium Level 138 135-145 MMOL/L Potassium Level 4.1 3.6-5.0 MMOL/L Chloride Level 105 98-107 MMOL/L Carbon Dioxide Level 23 21-32 MMOL/L Anion Gap 10 5-14 MMOL/L Blood Urea Nitrogen 18 7-18 MG/DL Creatinine 1.16 0.60-1.30 MG/DL Estimat Glomerular Filtration Rate > 60 BUN/Creatinine Ratio 16 Glucose Level 137 H 70-105 MG/DL Calcium Level 9.5 8.5-10.1 MG/DL Corrected Calcium 9.5 8.5-10.1 MG/DL Magnesium Level 2.0 1.8-2.4 MG/DL Total Bilirubin 1.1 H 0.1-1.0 MG/DL Aspartate Amino Transf (AST/SGOT) 17 5-34 U/L Alanine Aminotransferase (ALT/SGPT) 10 0-55 U/L Alkaline Phosphatase 66 40-136 U/L Myoglobin 59.9 10.0-92.0 NG/ML Troponin I < 0.028 <0.028 NG/ML B-Type Natriuretic Peptide 50.3 <100.0 PG/ML Total Protein 7.1 6.4-8.2 GM/DL Albumin 4.0 3.2-4.5 GM/DL Urine Color YELLOW Urine Clarity SLIGHTLY CLOUDY Urine pH 8 5-9 Urine Specific [place] 1.010 L 1.016-1.022 Urine Protein 3+ H NEGATIVE Urine Glucose (UA) NEGATIVE NEGATIVE Urine Ketones 1+ H NEGATIVE Urine Nitrite NEGATIVE NEGATIVE Urine Bilirubin NEGATIVE NEGATIVE Urine Urobilinogen NORMAL NORMAL MG/DL Urine Leukocyte Esterase 3+ H NEGATIVE Urine RBC (Auto) 4+ H NEGATIVE Urine RBC 2-5 H /HPF Urine WBC >100 H /HPF Urine Crystals NONE /LPF Urine Bacteria LARGE H /HPF Urine Casts NONE /LPF Urine Mucus NEGATIVE /LPF Urine Culture Indicated YES My Orders Orders - CHANDA MA APRN Cbc With Automated Diff (06/14/18 10:43) Magnesium (06/14/18 10:43) Chest 1 View, Ap/Pa Only (06/14/18 10:43) Ekg Tracing (06/14/18 10:43) Cardiac Profile 1 (06/14/18 10:43) Comprehensive Metabolic Panel (06/14/18 10:43) Myoglobin Serum (06/14/18 10:43) Protime With Inr (06/14/18 10:43) Partial Thromboplastin Time (06/14/18 10:43) O2 (06/14/18 10:43) Monitor-Rhythm Ecg Trace Only (06/14/18 10:43) Lipid Panel (06/15/18 06:00) Saline Lock/Iv-Start (06/14/18 10:43) BNP (06/14/18 10:43) Manual Differential (06/14/18 10:30) Ua Culture If Indicated (06/14/18 10:54) Straight Cath (Urinary) (06/14/18 10:56) Urine Culture (06/14/18 10:35) Ceftriaxone For Iv Use (Rocephin For I (06/14/18 11:30) Blood Culture (06/14/18 11:30) Lactic Acid Analyzer (06/14/18 11:30) Piperacillin/Tazobactam (Bulk) (Zosyn In (06/14/18 11:30) Vital Signs/I&O 06/14/18 10:25 Temp 97.7 Pulse 86 Resp 18 B/P (MAP) 155/67 (96) Pulse Ox 96 Capillary Refill : Diagnostic Imaging Diagonstic Imaging: Xray Plain Films/CT/US/NM/MRI: chest Comments NAME: CHUCK BYNUM MED REC#: [id number] PT STATUS: REG ER : 1940 PHYSICIAN: CHANDA MA APRN ADMIT DATE: 06/14/18/ER Draft Date of Exam:06/14/18 CHEST 1 VIEW, AP/PA ONLY INDICATION: Weakness Frontal chest obtained at 1105 AM and compared with 02/01/2017. Heart is mildly enlarged. There is a normal appearance of the mediastinal silhouette. The right lung appears clear. The left lung shows some questionable infiltrate in the left base in the retrocardiac region with increased density and partial obscuration of the left hemidiaphragm. There are calcified granulomata over the left apex. IMPRESSION: Questionable infiltrate left lung base and retrocardiac region. I would recommend PA and lateral views of the chest when the patient is able. No other significant findings. Dictated on workstation # [id number] Dict: 06/14/18 1119 Trans: 06/14/18 1124 [id number] Interpreted by: PETERSON LUO MD Electronically signed by: Departure Communication (Admissions) Time/Spoke to Admitting Phy: 11:33 Discussed the case with Dr. Carrillo. We will admit. Use Zosyn. Consult social welfare clerk regarding usp placement upon discharge. His brother wishes for him to be a FULL CODE STATUS Impression Primary Impression: UTI, DIARRHEA, WEAKNESS, DEMENTIA Disposition: ADMITTED INPATIENT Condition: Stable Admissions Decision to Admit Reason: Admit from ER (General) Decision to Admit/Date: Jun 14, 2018 Time/Decision to Admit Time: 11:32 Departure-Patient Inst. Referrals: STEPHANY BARLOW MD (PCP/Family) Primary Care Physician CHANDA MA APRN Jun 14, 2018 10:59
[2018-06-14 11:01] LABS: ALANINE AMINOTRANSFERASE 10 U/L (0-55); ALKALINE PHOSPHATASE 66 U/L (40-136); BILIRUBIN,TOTAL 1.1 MG/DL (0.1-1.0); BUN/CREATININE RATIO 16; CALCIUM 9.5 MG/DL (8.5-10.1); CARBON DIOXIDE 23 MMOL/L (21-32); CHLORIDE 105 MMOL/L (98-107); CREATININE SERUM 1.16 MG/DL (0.60-1.30); GFR ESTIMATED > 60; GLUCOSE 137 MG/DL (70-105); POTASSIUM 4.1 MMOL/L (3.6-5.0); SODIUM 138 MMOL/L (135-145); TOTAL PROTEIN 7.1 GM/DL (6.4-8.2)
[2018-06-14 11:02] LABS: INR 1.1 (0.8-1.4); PROTHROMBIN TIME PATIENT 14.5 SEC (12.2-14.7)
[2018-06-14 11:13] LABS: BAND NEUTROPHILS 0 %; BASOPHILS % (MANUAL) 0 %; ELLIPT/OVALOCYTES SLIGHT; EOSINOPHILS % (MANUAL) 0 %; LYMPHOCYTES % (MANUAL) 12 %; MONOCYTES % (MANUAL) 11 %; NEUTROPHILS % (MANUAL) 77 %
[2018-06-14 11:17] LABS: BACTERIA,URINE LARGE /HPF; WBC,URINE >100 /HPF
--- NOTE | 2018-06-14 11:25 | Diagnostic Imaging Report ---
INDICATION: Weakness Frontal chest obtained at 1105 AM and compared with 02/01/2017. Heart is mildly enlarged. There is a normal appearance of the mediastinal silhouette. The right lung appears clear. The left lung shows some questionable infiltrate in the left base in the retrocardiac region with increased density and partial obscuration of the left hemidiaphragm. There are calcified granulomata over the left apex. IMPRESSION: Questionable infiltrate left lung base and retrocardiac region. I would recommend PA and lateral views of the chest when the patient is able. No other significant findings. Dictated by: Dictated on workstation # [id number]
[2018-06-14] MEDS ORDERED: PIPERACILLIN/TAZOBACTAM (BULK) 4.5 GM in NS (IVPB) 100 ML IV ONE (11:30)
[2018-06-14] MEDS ORDERED: cefTRIAXone FOR IV USE 1,000 MG in WATER (STERILE) FOR INJECTION 10 ML IV ONE (11:30)
--- NOTE | 2018-06-14 12:40 | NUR ---
Dorita aranda in [facility] - 06/14/18 at 1241 by RAHEME ATTEMPT TO CALL REPORT
[2018-06-14 13:00] VITALS: BP 138/63
--- NOTE | 2018-06-14 13:00 | NUR ---
FLETCHERCHUCK Malena admitted to room 416-1, with an admitting diagnosis of LLL PNUEM, UTI, WEAKNESS, DIARRHEA, DEMENITA, on 06/14/18 from ER via [facility], accompanied by FACILITIES PROJECT MANAGER ALAN.CHUCK BYNUM introduced to surroundings, call light, bed controls, phone, TV, temperature control, lights, meal times, smoking policy, visitor policy, side rail policy, bathrooms and showers. Patient Rights given to patient in the handbook. CHUCK BYNUM Malena verbalizes understanding that [facility] is not responsible for the loss or damage to any personal effects or valuables that are kept in the patients posession during their hospitalization. The following Patient Care Plans were discussed with the PT'S BROTHER: Discharge Planning, IMP GAS EXCH, INEFF BREATHING PATTERN, INEFF AIRWAY CLEARANCE, PAIN, INFECTION, ACT INTOL, AND ANXIETY. CHUCK BYNUM Malena verbalizes understanding of Interdisciplinary Patient Education. Patient and/or family were informed about the Rapid Response Team and its purpose. NOTE THAT THIS RN CALLED ER BACK AFTER BACK FROM LUNCH FOR REPORT -- ER HAD CALLED 2 TIMES WHILE THIS RN EATING LUNCH. NOTE THAT WHEN PT TO FLOOR -- PT'S BROTHER VOICED THAT PT NEEDED TO BE ONE ON ONE -- ALL HIS PRIOR ADMISSION TO HOSPITAL HE WAS A ONE ON ONE -- PT IS NON VERBAL DEMENTIA -- AND HE PULLES AT IV AND GET UP -- HE DOES NOT USE CALL LIGHT APPRORIATELY -- THIS RN ADVISED MACHINE SHOP SPECIALIST -- GOT TELE SITTER -- BROTHER VOICED HE HAD TO LEAVE AND DID SO
[2018-06-14] MEDS ORDERED: CATHETER FLUSH 10 ML SYR IV PRN (13:15)
[2018-06-14] MEDS ORDERED: ACETAMINOPHEN 325 MG TABLET PO PRN (13:15)
[2018-06-14] MEDS: NS IV 1000 ML 1,000 ML IV SCH (13:53)
--- NOTE | 2018-06-14 14:06 | NUR ---
PATIENT WAS RECENTLY DISCHARGED FROM THIS FACILITY ON ANTIBIOTICS WHICH WERE REPORTED IN ED FINISHED. PRIOR TO THAT DISCHARGE HE WAS NOT TAKING ANY MEDICATION. I REMOVED THE ANTIBIOTICS THAT WERE COMPLETED AND SET THE PROFILE BACK TO NO MEDS AT THIS TIME.
[2018-06-14 16:10] VITALS: BP 114/56
[2018-06-14 16:58] VITALS: BP 155/67
[2018-06-14] MEDS ORDERED: RT-ALBUTEROL/IPRATROPIUM 3 ML (DUONEB) VIAL INH PRN (17:15)
[2018-06-14] MEDS: PIPERACILLIN/TAZO 4.5 GM/NS 100 ML IV SCH ×2 (18:03)
[2018-06-14] MEDS: RT-ALBUTEROL/IPRATROPIUM 3 ML (DUONEB) VIAL INH SCH (19:37)
[2018-06-14 20:59] VITALS: BP 121/65
[2018-06-15 00:35] VITALS: BP 122/65
[2018-06-15] MEDS: NS IV 1000 ML 1,000 ML IV SCH (01:04)
[2018-06-15] MEDS: PIPERACILLIN/TAZO 4.5 GM/NS 100 ML IV SCH ×6 (02:52→18:51)
[2018-06-15 04:10] VITALS: BP 136/65
[2018-06-15 04:43] LABS: BASOPHILS % (AUTO) 0 % (0-10); EOSINOPHILS # (AUTO) 0.2 10^3/uL (0.0-0.3); EOSINOPHILS % (AUTO) 2 % (0-10); HEMATOCRIT 39 % (40-54); HEMOGLOBIN 12.7 G/DL (13.3-17.7); LYMPHOCYTES % (AUTO) 10 % (12-44); MEAN CORPUSCULAR HGB CONC 33 G/DL (32-36); MEAN CORPUSCULAR VOLUME 93 FL (80-99); MEAN PLATELET VOLUME 9.5 FL (7.4-10.4); MONOCYTES # (AUTO) 0.9 X 10^3 (0.0-1.0); MONOCYTES % (AUTO) 9 % (0-12); NEUTROPHILS # (AUTO) 7.8 X 10^3 (1.8-7.8); NEUTROPHILS % (AUTO) 79 % (42-75); PLATELET COUNT 230 10^3/uL (130-400); RED CELL DISTRIBUTION WIDTH 13.8 % (10.0-14.5); WHITE BLOOD COUNT 9.8 10^3/uL (4.3-11.0)
[2018-06-15 04:47] LABS: MEAN CORPUSCULAR HEMOGLOBIN 30 PG (25-34)
[2018-06-15 05:09] LABS: ALANINE AMINOTRANSFERASE 9 U/L (0-55); ALBUMIN 3.3 GM/DL (3.2-4.5); ALKALINE PHOSPHATASE 60 U/L (40-136); BILIRUBIN,TOTAL 0.5 MG/DL (0.1-1.0); BUN/CREATININE RATIO 17; CALCIUM 8.8 MG/DL (8.5-10.1); CARBON DIOXIDE 22 MMOL/L (21-32); CHLORIDE 110 MMOL/L (98-107); CHOLESTEROL 149 MG/DL (< 200); CREATININE SERUM 0.93 MG/DL (0.60-1.30); GFR ESTIMATED > 60; GLUCOSE 97 MG/DL (70-105); HDL CHOLESTEROL 44 MG/DL (40-60); POTASSIUM 4.2 MMOL/L (3.6-5.0); SODIUM 140 MMOL/L (135-145); TOTAL PROTEIN 6.2 GM/DL (6.4-8.2); TRIGLYCERIDES 46 MG/DL (<150); VLDL CHOLESTEROL 9 MG/DL (5-40)
[2018-06-15 08:00] VITALS: BP 135/64
[2018-06-15] MEDS: RT-ALBUTEROL/IPRATROPIUM 3 ML (DUONEB) VIAL INH SCH ×2 (08:13→23:46)
--- NOTE | 2018-06-15 08:27 | Diagnostic Imaging Report ---
INDICATION: Pneumonia. TECHNIQUE: Single view chest 3:49 AM. CORRELATION STUDY: 06/14/2018 FINDINGS: Heart size enlarged. Vascular overall increased. Likely atelectasis or less likely infiltrate of the lung bases. Slight increased density over the perihilar region particularly in the right superhilar region. IMPRESSION: 1. Overall appears to be some increasing vascular congestion from prior study. Perihilar opacities, particularly in the right superhilar region is noted, may be reflective of the edema. Followup imaging recommended. Dictated by: Dictated on workstation # [id number]
--- NOTE | 2018-06-15 10:10 | History & Physical-Hospitalist ---
History of Present Illness HPI/Chief Complaint CC: Confusion HPI: This is a 77-year-old white male who has a history of severe dementia and resides with his brother who presents to the ER with fever and altered mental status found to have recurrent UTI with pneumonia. Patient needs a care home placement now. Brother cannot take care of him at home. Patient is a feeder and the nurse aide is providing that support right now. Awaiting urine culture to narrow antibiotic regimen. Overall patient is really unable to participate in any type of conversation due to severe dementia. Overall prognosis poor. Need to address advanced directives since he remains a full code and considering the severity of his dementia will need to address that in case he decompensates. Source: RN/, old records Exam Limitations: clinical condition (dementia) Date Seen 06/15/18 Time Seen by a Provider: 10:00 Attending Physician Ava Carrillo Floyd R MD Referring Physician Date of Admission Jun 14, 2018 at 11:59 Home Medications & Allergies Home Medications Reviewed patient Home Medication Reconciliation performed by pharmacy medication reconciliations injection maintenance technician and/or nursing. Patients Allergies have been reviewed. Allergies Allergies Coded Allergies Latex, Natural Rubber (Verified Allergy, Severe, RASH AND INFLAMMED, 05/24/18) Past Swupuew-Lzpsen-Omgcxf Hx Past Med/Social Hx: Reviewed Nursing Past Med/Soc Hx, Reviewed and Corrections made Patient Social History Marrital Status: single Employed/Student: retired Alcohol Use: Denies Use Recreational Drug Use: No Smoking Status: Never a Smoker Physical Abuse Screen: No Sexual Abuse: No Recent Foreign Travel: No Contact w/other who traveled: No Recent Hopitalizations: Yes (UTI/DIARRHEA) Recent Infectious Disease Expo: No Immunizations Up To Date Date of Pneumonia Vaccine: May 27, 2014 Date of Influenza Vaccine: May 27, 2014 Past Medical History Surgeries: Eye Surgery, Joint Replacement Respiratory: Pneumonia Cardiac: High Cholesterol, Hypertension Neurological: Dementia Reproductive: No Genitourinary: Bladder Infection, Kidney Stones Gastrointestinal: Chronic Constipation, Chronic Diarrhea, Gall Bladder Disease Musculoskeletal: Arthritis, Fractures HEENT: Cataract History of Blood Disorders: No Family History Alzheimer's disease 03 MOTHER Cataracts 09 BROTHER Family history: Diabetes mellitus 09 BROTHER GERD 09 BROTHER Hiatal hernia 03 MOTHER Hypertension 09 BROTHER Parkinson's disease 03 FATHER TIAs 03 FATHER Review of Systems ROS-Unable to Obtain: severe dementia precludes details and no family as bedside Constitutional: see HPI Physical Exam Physical Exam Vital Signs Vital Signs - First Documented 06/14/18 06/14/18 06/14/18 10:25 12:47 16:58 Temp 97.7 Pulse 86 Resp 18 B/P (MAP) 155/67 (96) Pulse Ox 96 O2 Delivery Room Air FiO2 21 Capillary Refill : Less Than 3 SecondsLess Than 3 Seconds Height, Weight, BMI Height: 6'2.00" Weight: 180lbs. 0.0oz. 81.273137nm; 23.1 BMI Method:Stated General Appearance: No Apparent Distress, WD/WN, Chronically ill Eyes: Right Eye Normal Inspection, Right Eye PERRL HEENT: PERRL/EOMI, Normal ENT Inspection, Pharynx Normal, Moist Mucous Membranes Neck: Full Range of Motion, Normal Inspection, Non Tender Respiratory: Chest Non Tender, Lungs Clear, Normal Breath Sounds, No Accessory Muscle Use, No Respiratory Distress Cardiovascular: Regular Rate, Rhythm, No Edema, No Gallop, No JVD, No Murmur, Normal Peripheral Pulses Gastrointestinal: Normal Bowel Sounds, No Organomegaly, No Pulsatile Mass, Non Tender, Soft Back: Normal Inspection, No CVA Tenderness, No Vertebral Tenderness Extremity: Normal Capillary Refill, Normal Inspection, Normal Range of Motion, Non Tender, No Calf Tenderness, No Pedal Edema Neurologic/Psychiatric: Alert, Disoriented Skin: Normal Color, Warm/Dry Lymphatic: No Adenopathy Results Results/Procedures Labs Laboratory Tests 06/14/18 10:30 06/15/18 04:20 Patient resulted labs reviewed. Assessment/Plan Admission Diagnosis Assessment: Recurrent UTI Pneumonia Severe dementia Poor prognosis Plan: IV antibiotics Await urine culture Supportive care [facility] placement Admission Status: Inpatient Order (span 2 midnights) Reason for Inpatient Admission: Severe dementia with recurrent UTI will require 3 days and NH placement Diagnosis/Problems Diagnosis/Problems (1) UTI (urinary tract infection) Status: Acute Qualifiers: Urinary tract infection type: acute cystitis Hematuria presence: without hematuria Qualified Codes: N30.00 - Acute cystitis without hematuria (2) Pneumonia Status: Acute Qualifiers: Pneumonia type: due to unspecified organism Laterality: bilateral Lung location: unspecified part of lung Qualified Codes: J18.9 - Pneumonia, unspecified organism (3) Leukocytosis Status: Acute Qualifiers: Leukocytosis type: leukemoid reaction Qualified Codes: D72.823 - Leukemoid reaction (4) Dementia Status: Chronic Qualifiers: Dementia type: Alzheimer's disease Alzheimer's disease onset: unspecified onset Dementia behavioral disturbance: without behavioral disturbance Qualified Codes: G30.9 - Alzheimer's disease, unspecified; F02.80 - Dementia in other diseases classified elsewhere without behavioral disturbance Clinical Quality Measures DVT/VTE Risk/Contraindication: Risk Factor Score Per Nursin RFS Level Per Nursing on Admit: 3=High AVA CARRILLO DO Jun 15, 2018 10:10
[2018-06-15] MEDS: ENOXAPARIN 40 MG/0.4 ML (LOVENOX) SYR SC SCH (11:13)
--- NOTE | 2018-06-15 11:32 | NUR ---
CM/SS spoke with patient's brother as patient is nonverbal, he did smile during conversation. Vinay (brother) would like referral sent to - as the family has had several people stay there and familiar with the facility. Referral sent to -.
--- NOTE | 2018-06-15 11:38 | Physical Therapy Evaluation ---
PT Evaluation-General Medical Diagnosis Admission Date Jun 14, 2018 at 11:59 Medical Diagnosis: weakness Onset Date: Jun 14, 2018 Therapy Diagnosis Therapy Diagnosis: impaired mobility, strength, endurance Height/Weight Height (Feet): 6 Height (Inches): 2.00 Weight (Pounds): 180 Weight (Ounces): 0.0 Precautions Precautions/Isolations: Fall Prevention, Standard Precautions Referral Physician: Ava Carrillo DO Reason for Referral: Evaluation/Treatment Medical History Pertinent Medical History: Arthritis, Dementia, HTN Additional Medical History Past Medical History Surgeries: Eye Surgery, Joint Replacement Respiratory: Pneumonia Cardiac: High Cholesterol, Hypertension Neurological: Dementia Reproductive: No Genitourinary: Bladder Infection, Kidney Stones Gastrointestinal: Chronic Constipation, Chronic Diarrhea, Gall Bladder Disease Musculoskeletal: Arthritis, Fractures HEENT: Cataract Reviewed History: Yes Social History Home: Residential Patient is a prison resident. Prior/Core FIM Prior Level of Function Therapy Code Descriptions/Definitions Functional [place] Measure: 0=Not Assessed/NA 4=Minimal Assistance 1=Total Assistance 5=Supervision or Setup 2=Maximal Assistance 6=Modified [place] 3=Moderate Assistance 7=Complete [place] Therapy Quality Codes: 6 Independent with activity with or without an assistive device 5 Patient requires set up or clean up by helper. Patient completes activity by themselves 4 Supervision or touching assist (CGA). [place] provide cues , steadying assist 3 The helper provides less than half the effort to complete the activity 2 The helper provides more than half the effort to complete the activity 1 Dependent. The helper does all the effort to complete an activity 7 Patient refused to complete or attempt activity 9 The patient did not perform the activity before the current illness or injury 88 Not attempted due to Medical conditions or safety concerns Functional Abilities and Goals: Independent: Patient completed the activities by him/herself, with or without an assistive device, with no assistance from a helper. Needed Some Help: Patient needed partial assistance from another person to complete activities. Dependent: A helper completed the activities for the patient. Unknown: Not Applicable: Unknown, patient is non-verbal and demented. PT Evaluation-Current Subjective Patient just placed into recliner by nursing at PT enters room. He seems to indicate that he might have some pain in his abdomen or groin area but is unable to elaborate. Nurse states that he has some redness in his groin. Pt/Family Goals none stated Objective Patient Orientation: Unable to Assess Attachments: IV ROM/Strength ROM Lower Extremities Patient resists ROM testing but doesn't seem to have any significant contractures. Strength Lower Extremities Patient will not follow directions. Neuromuscular (Tone, Coordination, Reflexes) NT Sensory Sensation Lower Extremities unable to assess Transfers Therapy Code Descriptions/Definitions Functional [place] Measure: 0=Not Assessed/NA 4=Minimal Assistance 1=Total Assistance 5=Supervision or Setup 2=Maximal Assistance 6=Modified [place] 3=Moderate Assistance 7=Complete [place] Transfers (B, C, W/C) (FIM): 3 Sit to/from Stand: 3 min assist of 2 to stand from the recliner (nursing help) Gait Mode of Locomotion: Walk Anticipated Mode of Locomotion: Walk Gait (FIM): 1 Distance: 20' Gait Level of Assist: 4 Gait Persons Needed: 1 Gait Assistive Device: FWW Comments/Gait Description Patient ambulated 20' with min assist, he needs assist guiding the walker, slumped posture and keeps walker too far out in front. Balance Sitting Static: Fair Sitting Dynamic: Fair Standing Static: Fair Standing Dynamic: Fair Treatment Patient does not follow directions. He will not perform any LE exercises. Assessment/Needs Patient has impaired mobility, strength, endurance. He is non-verbal and will no follow directions but was able to stand and ambulate. Rehab Potential: Guarded PT Short Term Goals Short Term Goals Time Frame: Jun 22, 2018 Transfers (B,C,W/C) (FIM): 4 Gait (FIM): 2 Gait Distance Comment: 40' Gait Level of Assist: 4 Gait Assistive Device: FWW PT Plan Problem List Problem List: Activity Tolerance, Functional Strength, Safety, Balance, Gait, Transfer, Bed Mobility, ROM Treatment/Plan Treatment Plan: Continue Plan of Care Treatment Plan: Bed Mobility, Concurrent Therapy, Education, Functional Activity [place], Functional Strength, Gait, Safety, Therapeutic Exercise, Transfers Treatment Duration: Jun 22, 2018 Frequency: 6 times per week Estimated Hrs Per Day: .25 hour per day (15-30') Patient and/or Family Agrees t: Yes Safety Risks/Education Patient Education: Gait Training, Transfer Techniques, Correct Positioning, Safety Issues Teaching Recipient: Patient Teaching Methods: Demonstration, Discussion Response to Teaching: Reinforcement Needed Discharge Recommendations Plan Patient will perform bed mobility and transfer training, balance and endurance training, functional strengthening, gait training, and education to improve functional mobility and independence at home. Therapy D/C Recommendations: Assisted (TCU/NH) Time/GCodes Time In: 1115 Time Out: 1130 Total Billed Treatment Time: 15 Total Billed Treatment 1 visit BRETT CHAMPAGNE PT Jun 15, 2018 11:38
[2018-06-15 11:53] VITALS: BP 140/60
--- NOTE | 2018-06-15 13:01 | Occupational Therapy Eval ---
OT Evaluation-General/PLF Medical Diagnosis Admission Date Jun 14, 2018 at 11:59 Medical Diagnosis: weakness Onset Date: Jun 14, 2018 Therapy Diagnosis Therapy Diagnosis: decreased self care skills Height/Weight Height (Feet): 6 Height (Inches): 2.00 Weight (Pounds): 180 Weight (Ounces): 0.0 Precautions Precautions/Isolations: Fall Prevention, Standard Precautions Safety Interventions: Bed Exit Alarm Referral Physician: Ava Carrillo DO Medical History Pertinent Medical History: Arthritis, Dementia, HTN Additional Medical History high cholesterol, kidney stones, gallbladder disease, fractures ADL-Prior Level of Function Therapy Code Descriptions/Definitions Functional [place] Measure: 0=Not Assessed/NA 4=Minimal Assistance 1=Total Assistance 5=Supervision or Setup 2=Maximal Assistance 6=Modified [place] 3=Moderate Assistance 7=Complete [place] Therapy Quality Codes: 6 Independent with activity with or without an assistive device 5 Patient requires set up or clean up by helper. Patient completes activity by themselves 4 Supervision or touching assist (CGA). [place] provide cues , steadying assist 3 The helper provides less than half the effort to complete the activity 2 The helper provides more than half the effort to complete the activity 1 Dependent. The helper does all the effort to complete an activity 7 Patient refused to complete or attempt activity 9 The patient did not perform the activity before the current illness or injury 88 Not attempted due to Medical conditions or safety concerns Functional Abilities and Goals: Independent: Patient completed the activities by him/herself, with or without an assistive device, with no assistance from a helper. Needed Some Help: Patient needed partial assistance from another person to complete activities. Dependent: A helper completed the activities for the patient. Unknown: Not Applicable: ADL PLOF Comments Pt unable to provide PLOF. No family present. Self Care: Unknown Functional Cognition: Unknown OT Current Status Subjective Pt sitting in chair with meal tray present. RN states pt had to be fed breakfast this morning. Pt is nonverbal, but does point at objects Mental Status/Objective Patient Orientation: Unable to Assess Attachments: Oxygen Current Upper Extremity ROM Not formally assessed, but pt moves bilateral UE spontaneously. ADL-Treatment ADL-Current Pt's meal tray is present. Pt required assist to scoop food, but then able to bring to mouth using right UE. Pt drinks with minimal assistance to hold cup. When eating finger food pt requires assist to regulate speed and bite size. RN and aide were notified. Pt has difficulty following commands. After eating, pt pointing at bed. Pt transferred to bed with hand held assist from therapist and nurse aide. Sit to supine with assist for LE. Upon returning to bed, pt incontinent of urine. Total assist required for hygiene. Pt rolled left and right with mod assist in order for bed pad to be changed. Pt positioned in bed with needs met and nurse aide present after session. Therapy Code Descriptions/Definitions Functional [place] Measure: 0=Not Assessed/NA 4=Minimal Assistance 1=Total Assistance 5=Supervision or Setup 2=Maximal Assistance 6=Modified [place] 3=Moderate Assistance 7=Complete [place] Therapy Quality Codes: 6 Independent with activity with or without an assistive device 5 Patient requires set up or clean up by helper. Patient completes activity by themselves 4 Supervision or touching assist (CGA). [place] provide cues , steadying assist 3 The helper provides less than half the effort to complete the activity 2 The helper provides more than half the effort to complete the activity 1 Dependent. The helper does all the effort to complete an activity 7 Patient refused to complete or attempt activity 9 The patient did not perform the activity before the current illness or injury 88 Not attempted due to Medical conditions or safety concerns OT Short Term Goals Short Term Goals Transfers (B,C,W/C) (FIM): 4 1=Demonstrate adherence to instructed precautions during ADL tasks. 2=Patient will verbalize/demonstrate understanding of assistive devices/ modifications for ADL. 3=Patient will improve strength/tolerance for activity to enable patient to perform ADL's. OT Tar Heater Goals [facility] Goals Time Frame: Jun 22, 2018 Eating (FIM): 5 1=Demonstrate adherence to instructed precautions during ADL tasks. 2=Patient will verbalize/demonstrate understanding of assistive devices/ modifications for ADL. 3=Patient will improve strength/tolerance for activity to enable patient to perform ADL's. OT Education/Plan Problem List/Assessment Assessment: Decreased Activ Tolerance, Decreased Safety Aware, Decreased UE Strength, Dependent Transfers, Impaired Funct Balance, Impaired I ADL's, Impaired Self-Care Skills Pt demonstrates decreased mobility, strength, activity tolerance, cognition, and safety awareness. Unsure of PLOF. Pt to benefit from OT to address increased independence for feeding. Discharge Recommendations Plan/Recommendations: Continue POC Treatment Plan/Plan of Care Treatment,Training & Education: Yes Patient would benefit from OT for education, treatment and training to promote independence in ADL's, mobility, safety and/or upper extremity function for ADL' s. Plan of Care: ADL Retraining Treatment Duration: Jun 22, 2018 Frequency: 5 times per week Estimated Hrs Per Day: .25 hour per day Rehab Potential: Guarded Time/GCodes Start Time: 11:38 Stop Time: 12:05 Total Time Billed (hr/min): 27 Billed Treatment Time 1 visit, EVM(10minutes), ADL(17minutes) CLARA PARRA OT Jun 15, 2018 13:01
--- NOTE | 2018-06-15 14:31 | NUR ---
CM/SS patient is accepted at - at discharge. They asked that Medicaid application be supplied to the brother, so he could begin filling that out. Attempted to speak with the brother and he was not at the hospital at this time, will speak with him on Monday.
[2018-06-15 16:00] VITALS: BP 127/61
[2018-06-15 19:58] VITALS: BP 125/65
[2018-06-16 00:14] VITALS: BP 148/69
[2018-06-16 03:31] VITALS: BP 136/67
[2018-06-16] MEDS: PIPERACILLIN/TAZO 4.5 GM/NS 100 ML IV SCH ×6 (03:55→17:07)
[2018-06-16 05:55] LABS: BASOPHILS % (AUTO) 0 % (0-10); EOSINOPHILS # (AUTO) 0.5 10^3/uL (0.0-0.3); EOSINOPHILS % (AUTO) 8 % (0-10); HEMATOCRIT 39 % (40-54); HEMOGLOBIN 12.8 G/DL (13.3-17.7); LYMPHOCYTES % (AUTO) 15 % (12-44); MEAN CORPUSCULAR HEMOGLOBIN 30 PG (25-34); MEAN CORPUSCULAR HGB CONC 33 G/DL (32-36); MEAN CORPUSCULAR VOLUME 92 FL (80-99); MEAN PLATELET VOLUME 9.4 FL (7.4-10.4); MONOCYTES # (AUTO) 0.8 X 10^3 (0.0-1.0); MONOCYTES % (AUTO) 12 % (0-12); NEUTROPHILS # (AUTO) 4.6 X 10^3 (1.8-7.8); NEUTROPHILS % (AUTO) 66 % (42-75); PLATELET COUNT 230 10^3/uL (130-400); RED CELL DISTRIBUTION WIDTH 13.9 % (10.0-14.5)
[2018-06-16 06:18] LABS: ALANINE AMINOTRANSFERASE 10 U/L (0-55); ALBUMIN 3.3 GM/DL (3.2-4.5); ALKALINE PHOSPHATASE 52 U/L (40-136); BILIRUBIN,TOTAL 0.4 MG/DL (0.1-1.0); BUN/CREATININE RATIO 16; CALCIUM 8.8 MG/DL (8.5-10.1); CARBON DIOXIDE 24 MMOL/L (21-32); CHLORIDE 110 MMOL/L (98-107); CREATININE SERUM 0.85 MG/DL (0.60-1.30); GFR ESTIMATED > 60; GLUCOSE 87 MG/DL (70-105); POTASSIUM 3.8 MMOL/L (3.6-5.0); SODIUM 142 MMOL/L (135-145); TOTAL PROTEIN 5.9 GM/DL (6.4-8.2)
[2018-06-16] MEDS: RT-ALBUTEROL/IPRATROPIUM 3 ML (DUONEB) VIAL INH SCH ×2 (07:27→20:18)
[2018-06-16 08:00] VITALS: BP 137/63
[2018-06-16] MEDS: ENOXAPARIN 40 MG/0.4 ML (LOVENOX) SYR SC SCH (11:06)
--- NOTE | 2018-06-16 11:14 | Physical Therapy Daily Note ---
PT Daily Note-Current Subjective Pt is non verbal but does point at some things like blankets, water and bed when wanting them Pain Comment: unable to assess Appearance At beginning of session, Pt supine in bed, awake with eyes open. At end of session, pt supine in bed with bed alarm activated, call light and bedside table within reach Mental Status Patient Orientation: Unable to Assess Transfers Therapy Code Descriptions/Definitions Functional [place] Measure: 0=Not Assessed/NA 4=Minimal Assistance 1=Total Assistance 5=Supervision or Setup 2=Maximal Assistance 6=Modified [place] 3=Moderate Assistance 7=Complete [place] Therapy Quality Codes: 6 Independent with activity with or without an assistive device 5 Patient requires set up or clean up by helper. Patient completes activity by themselves 4 Supervision or touching assist (CGA). [place] provide cues , steadying assist 3 The helper provides less than half the effort to complete the activity 2 The helper provides more than half the effort to complete the activity 1 Dependent. The helper does all the effort to complete an activity 7 Patient refused to complete or attempt activity 9 The patient did not perform the activity before the current illness or injury 88 Not attempted due to Medical conditions or safety concerns Transfers (B, C, W/C) (FIM): 4 Scootin Rollin Supine to/from Sit: 4 Sit to/from Stand: 4 Bed to/from Chair: 5 Difficulty following instructions at times. Inconstant with ability to perform sit to stand transfers and bed mobility, at times CGA is required and other times Min A. Improved with getting from chair back to bed Gait Training Gait (FIM): 1 Distance (FIM): 1=up to 49 ft Distance: 10'x2 Gait Level of Assist: 5 Gait Persons Needed: 1 Gait Assistive Device: FWW knees flexed, slow, constant instruction required. Improved with walking back to bed from chair Exercises Seated Therapy Exercises: Ankle pumps, Long arc quads, Hip flexion Standing: Sit to Stand min to mod movements with sitting exercises and great difficulty following instruction and demonstration Treatments transfer, gait, ther ex, safety, balance Assessment pt with very difficult time following instruction PT Short Term Goals Short Term Goals Time Frame: Jun 22, 2018 Transfers (B,C,W/C) (FIM): 4 Gait (FIM): 2 Gait Distance Comment: 40' Gait Level of Assist: 4 Gait Assistive Device: FWW PT Plan Treatment/Plan Treatment Plan: Continue Plan of Care Treatment Plan: Bed Mobility, Concurrent Therapy, Education, Functional Activity [place], Functional Strength, Gait, Safety, Therapeutic Exercise, Transfers Treatment Duration: Jun 22, 2018 Frequency: 6 times per week Estimated Hrs Per Day: .25 hour per day (15-30') Patient and/or Family Agrees t: Yes Safety Risks/Education Patient Education: Gait Training, Transfer Techniques, Safety Issues Teaching Recipient: Patient Teaching Methods: Demonstration, Discussion Response to Teaching: Unable to Comprehend, Reinforcement Needed Time/GCodes Time In: 829 Time Out: 845 Total Billed Treatment Time: 16 Total Billed Treatment 1 visit, FA x 1 unit RUTH FOWLER PTA Jun 16, 2018 11:14
[2018-06-16 12:00] VITALS: BP 138/63
--- NOTE | 2018-06-16 12:29 | Progress Note-Hospitalist ---
Subjective HPI/CC On Admission Date Seen by Provider: Jun 16, 2018 Time Seen by Provider: 12:00 CC: Confusion HPI: This is a 77-year-old white male who has a history of severe dementia and resides with his brother who presents to the ER with fever and altered mental status found to have recurrent UTI with pneumonia. Patient needs a group home placement now. Brother cannot take care of him at home. Patient is a feeder and the nurse aide is providing that support right now. Awaiting urine culture to narrow antibiotic regimen. Overall patient is really unable to participate in any type of conversation due to severe dementia. Overall prognosis poor. Need to address advanced directives since he remains a full code and considering the severity of his dementia will need to address that in case he decompensates. Subjective/Events-last exam Patient with severe dementia can't tell me any details Denies any pain [facility] senior living placement Review of Systems General: Fatigue Neurological: Confusion Focused Exam Lactate Level 06/14/18 11:35: Lactic Acid Level 1.03 Objective Exam Vital Signs Vital Signs Date Time Temp Pulse Resp B/P (MAP) Pulse Ox O2 Delivery O2 Flow Rate FiO2 06/16/18 08:00 Room Air 06/16/18 08:00 96.9 63 20 137/63 (87) 98 06/14/18 16:58 21 Capillary Refill : Less Than 3 SecondsLess Than 3 Seconds General Appearance: No Apparent Distress, WD/WN, Chronically ill HEENT: PERRL/EOMI, Normal ENT Inspection, Pharynx Normal, Moist Mucous Membranes Neck: Full Range of Motion, Normal Inspection, Non Tender Respiratory: Chest Non Tender, Lungs Clear, Normal Breath Sounds, No Accessory Muscle Use, No Respiratory Distress Cardiovascular: Regular Rate, Rhythm, No Edema, No Gallop, No JVD, No Murmur, Normal Peripheral Pulses Gastrointestinal: Normal Bowel Sounds, No Organomegaly, No Pulsatile Mass, Non Tender, Soft Back: Normal Inspection, No CVA Tenderness, No Vertebral Tenderness Extremity: Normal Capillary Refill, Normal Inspection, Normal Range of Motion, Non Tender, No Calf Tenderness, No Pedal Edema Neurologic/Psychiatric: Alert, Disoriented Skin: Normal Color, Warm/Dry Lymphatic: No Adenopathy Results/Procedures Lab Laboratory Tests 06/16/18 05:35 Patient resulted labs reviewed. Assessment/Plan Assessment and Plan Assess & Plan/Chief Complaint Assessment: Recurrent UTI Proteus on prelim Cx sensitivity pending Pneumonia Severe dementia Poor prognosis Plan: IV antibiotics Await urine culture Supportive care senior living placement Diagnosis/Problems Diagnosis/Problems (1) UTI (urinary tract infection) Status: Acute Qualifiers: Urinary tract infection type: acute cystitis Hematuria presence: without hematuria Qualified Codes: N30.00 - Acute cystitis without hematuria (2) Pneumonia Status: Acute Qualifiers: Pneumonia type: due to unspecified organism Laterality: bilateral Lung location: unspecified part of lung Qualified Codes: J18.9 - Pneumonia, unspecified organism (3) Leukocytosis Status: Acute Qualifiers: Leukocytosis type: leukemoid reaction Qualified Codes: D72.823 - Leukemoid reaction (4) Dementia Status: Chronic Qualifiers: Dementia type: Alzheimer's disease Alzheimer's disease onset: unspecified onset Dementia behavioral disturbance: without behavioral disturbance Qualified Codes: G30.9 - Alzheimer's disease, unspecified; F02.80 - Dementia in other diseases classified elsewhere without behavioral disturbance Clinical Quality Measures DVT/VTE Risk/Contraindication: Risk Factor Score Per Nursin RFS Level Per Nursing on Admit: 3=High MARGUERITE HELLER DO Jun 16, 2018 12:29
[2018-06-16 15:52] VITALS: BP 155/70
[2018-06-16 20:00] VITALS: BP 132/61
[2018-06-17] VITALS: BP 139/71
[2018-06-17] MEDS: PIPERACILLIN/TAZO 4.5 GM/NS 100 ML IV SCH ×4 (02:02→09:09)
[2018-06-17 03:16] VITALS: BP 141/70
[2018-06-17 08:00] VITALS: BP 135/69
[2018-06-17] MEDS: RT-ALBUTEROL/IPRATROPIUM 3 ML (DUONEB) VIAL INH SCH ×2 (10:39→18:15)
[2018-06-17] MEDS: ENOXAPARIN 40 MG/0.4 ML (LOVENOX) SYR SC SCH (11:41)
[2018-06-17 12:00] VITALS: BP 137/62
--- NOTE | 2018-06-17 12:45 | Progress Note-Hospitalist ---
Subjective HPI/CC On Admission Date Seen by Provider: Jun 17, 2018 Time Seen by Provider: 12:00 CC: Confusion HPI: This is a 77-year-old white male who has a history of severe dementia and resides with his brother who presents to the ER with fever and altered mental status found to have recurrent UTI with pneumonia. Patient needs a intermediate placement now. Brother cannot take care of him at home. Patient is a feeder and the nurse aide is providing that support right now. Awaiting urine culture to narrow antibiotic regimen. Overall patient is really unable to participate in any type of conversation due to severe dementia. Overall prognosis poor. Need to address advanced directives since he remains a full code and considering the severity of his dementia will need to address that in case he decompensates. Subjective/Events-last exam Patient improved overall Tolerating abx Eating and drinking well Labs were reviewed along with UCx. Review of Systems Neurological: Confusion Objective Exam Vital Signs Vital Signs Date Time Temp Pulse Resp B/P (MAP) Pulse Ox O2 Delivery O2 Flow Rate FiO2 06/17/18 08:00 Room Air 06/17/18 08:00 96.9 69 18 135/69 (91) 98 06/14/18 16:58 21 Capillary Refill : Less Than 3 SecondsLess Than 3 Seconds General Appearance: No Apparent Distress, WD/WN, Chronically ill HEENT: PERRL/EOMI, Normal ENT Inspection, Pharynx Normal, Moist Mucous Membranes Neck: Full Range of Motion, Normal Inspection, Non Tender Respiratory: Chest Non Tender, Lungs Clear, Normal Breath Sounds, No Accessory Muscle Use, No Respiratory Distress Cardiovascular: Regular Rate, Rhythm, No Edema, No Gallop, No JVD, No Murmur, Normal Peripheral Pulses Gastrointestinal: Normal Bowel Sounds, No Organomegaly, No Pulsatile Mass, Non Tender, Soft Back: Normal Inspection, No CVA Tenderness, No Vertebral Tenderness Extremity: Normal Capillary Refill, Normal Inspection, Normal Range of Motion, Non Tender, No Calf Tenderness, No Pedal Edema Neurologic/Psychiatric: Alert, Disoriented Skin: Normal Color, Warm/Dry Lymphatic: No Adenopathy Results/Procedures Lab Patient resulted labs reviewed. Assessment/Plan Assessment and Plan Assess & Plan/Chief Complaint Assessment: Recurrent UTI Proteus now on Rocephin Pneumonia Severe dementia Poor prognosis Plan: IV antibiotics Reviewed urine culture Supportive care [facility] placement Diagnosis/Problems Diagnosis/Problems (1) UTI (urinary tract infection) Status: Acute Qualifiers: Urinary tract infection type: acute cystitis Hematuria presence: without hematuria Qualified Codes: N30.00 - Acute cystitis without hematuria (2) Pneumonia Status: Acute Qualifiers: Pneumonia type: due to unspecified organism Laterality: bilateral Lung location: unspecified part of lung Qualified Codes: J18.9 - Pneumonia, unspecified organism (3) Leukocytosis Status: Acute Qualifiers: Leukocytosis type: leukemoid reaction Qualified Codes: D72.823 - Leukemoid reaction (4) Dementia Status: Chronic Qualifiers: Dementia type: Alzheimer's disease Alzheimer's disease onset: unspecified onset Dementia behavioral disturbance: without behavioral disturbance Qualified Codes: G30.9 - Alzheimer's disease, unspecified; F02.80 - Dementia in other diseases classified elsewhere without behavioral disturbance Clinical Quality Measures DVT/VTE Risk/Contraindication: Risk Factor Score Per Nursin RFS Level Per Nursing on Admit: 3=High MARGUERITE HELLER DO Jun 17, 2018 12:45
[2018-06-17 16:00] VITALS: BP 129/71
[2018-06-17] MEDS: AUGMENTIN 875 MG TAB (AMOXICILLIN/CLAVULANATE) PO SCH (17:35)
[2018-06-17 23:49] VITALS: BP 136/65
[2018-06-18] MEDS: AUGMENTIN 875 MG TAB (AMOXICILLIN/CLAVULANATE) PO SCH (07:33)
[2018-06-18] MEDS: ENOXAPARIN 40 MG/0.4 ML (LOVENOX) SYR SC SCH (07:33)
--- NOTE | 2018-06-18 09:36 | Progress Note-Hospitalist ---
Progress Note Progress Notes/Assess & Plan Date Seen 06/18/18 Time Seen by Provider: 09:33 Assessment & Plan The patient has been accepted at [facility]. He is pleasant and smiling but does not speak. Physical exam: Lungs are clear to auscultation. CV is regular. Extremities show no pedal edema. Impression: Sepsis/urinary tract infection 2.severe dementia. 3.inability to perform activities of daily living. Plan: See discharge sequence for routines and medications. SONIA TEJEDA MD Jun 18, 2018 09:36
--- NOTE | 2018-06-18 09:43 | Discharge Summary-Hospitalist ---
Diagnosis/Chief Complaint Date of Admission Jun 14, 2018 at 11:59 Date of Discharge 06/18/18 Admission Diagnosis Assessment: Recurrent UTI Pneumonia Severe dementia Poor prognosis Plan: IV antibiotics Await urine culture Supportive care [facility] placement Discharge Diagnosis Heart urinary tract infection/sepsis. 2. severe dementia. 3.inability to perform activities of daily living. (1) UTI (urinary tract infection) Status: Acute (2) Pneumonia Status: Acute (3) Leukocytosis Status: Acute (4) Dementia Status: Chronic Discharge Summary Discharge Physical Exam Allergies: Coded Allergies: Latex, Natural Rubber (Verified Allergy, Severe, RASH AND INFLAMMED, ) Vitals & I&Os Vital Signs Date Time Temp Pulse Resp B/P (MAP) Pulse Ox O2 Delivery O2 Flow Rate FiO2 06/17/18 23:49 98.0 61 16 136/65 (88) 96 Room Air 06/14/18 16:58 21 General Appearance: No Apparent Distress HEENT: Normal ENT Inspection Respiratory: Chest Non Tender, Lungs Clear, Normal Breath Sounds, No Accessory Muscle Use, No Respiratory Distress Cardiovascular: Regular Rate, Rhythm, No Edema, No Gallop, No JVD, No Murmur, Normal Peripheral Pulses Hospital Course Was the Problem List Reviewed?: Yes . The patient was brought to the emergency room by his brother. He is severely demented and had been cared for by his brother. This had been an increasing burden and the patient appeared ill and was performing even worse. He does not speak. He requires feeding in order to take nourishment. Initially there was the question of a pneumonia. This was not substantiated. The patient grew Proteus mirabilis which was widely sensitive from his urine. He has responded to that. Arrangements have been made for him to be transferred to medical [facility] today. Labs (last 24 hrs) Microbiology 06/14/18 Blood Culture - Preliminary, Resulted No growth 06/14/18 Urine Culture - Final, Complete Proteus mirabilis Patient resulted labs reviewed. Discussion & Recommendations Discharge Planning: >30 minutes discharge planning Discharge Home Medications: Active Scripts Active No Active Prescriptions or Reported Medications Instructions to patient/family Please see electronic discharge instructions given to patient. Clinical Quality Measures DVT/VTE Risk/Contraindication: Risk Factor Score Per Nursin RFS Level Per Nursing on Admit: 3=High Problem Qualifiers (1) UTI (urinary tract infection): Urinary tract infection type: acute cystitis Hematuria presence: without hematuria Qualified Codes: N30.00 - Acute cystitis without hematuria (2) Pneumonia: Pneumonia type: due to unspecified organism Laterality: bilateral Lung location: unspecified part of lung Qualified Codes: J18.9 - Pneumonia, unspecified organism (3) Leukocytosis: Leukocytosis type: leukemoid reaction Qualified Codes: D72.823 - Leukemoid reaction (4) Dementia: Dementia type: Alzheimer's disease Alzheimer's disease onset: unspecified onset Dementia behavioral disturbance: without behavioral disturbance Qualified Codes: G30.9 - Alzheimer's disease, unspecified; F02.80 - Dementia in other diseases classified elsewhere without behavioral disturbance SONIA TEJEDA MD Jun 18, 2018 09:43
[2018-06-18] MEDS ORDERED: AMOX-358 PO (09:50)
[2018-06-18] MEDS: RT-ALBUTEROL/IPRATROPIUM 3 ML (DUONEB) VIAL INH SCH (09:50)
--- NOTE | 2018-06-18 12:15 | NUR ---
Completed the CARE assessment with the patient and his brother Vinay (POJaxson). CARE assessment sent to STEFANO ZAMORANO and copy retained for the chart. Discharge information sent to [facility]. [facility] will transport this day at 1pm. Family and RNing updated.
[2018-06-18 13:52] VITALS: BP 136/65
--- NOTE | 2018-06-18 14:36 | Occupational Ther Daily Note ---
OT Current Status-Daily Note Subjective Pt. looks at therapist, but is unable to verbalize. Brother is in the room and states that this therapist that pt. was ambulating to and from the bathroom before hospitalization, and that you just have to "do it for him." This was in regards to giving him cues to sit on side of bed and move, etc... Appearance Pt. in bed. Smiles at therapist. Mental Status/Objective Therapy Code Descriptions/Definitions Functional [place] Measure: 0=Not Assessed/NA 4=Minimal Assistance 1=Total Assistance 5=Supervision or Setup 2=Maximal Assistance 6=Modified [place] 3=Moderate Assistance 7=Complete [place] ADL-Treatment OT attempted to converse with pt, but brother states that he does not understand. Pt. given gentle tactile and verbal cues to sit on side of bed and participate. Pt. requires max assist to transfer supine-sit, and he does not initiate the movement on his own. OT does this for him. Stood at bedside with mod assist. Pt. encouraged to take steps back toward HOB, but instead, pt. sits down on side of bed. OT provides gentle PROM to bilateral shoulders, as pt. does not do this on his own. Pt. did though then lay self back onto bed. All needs are met. Pt. is given several sips of water, but does not initiate holding the cup on his own. Education OT Patient Education: Correct positioning, Exercise program, Modified ADL techniques, Progress toward Goal/Update tx plan, Purpose of tx/functional activities, Reviewed precautions, Rehab process, Transfer techniques Teaching Recipient: Patient, Family Teaching Methods: Demonstration, Discussion Response to Teaching: Unable to Return Demonstration, Unable to Comprehend OT Short Term Goals Short Term Goals Transfers (B,C,W/C) (FIM): 4 1=Demonstrate adherence to instructed precautions during ADL tasks. 2=Patient will verbalize/demonstrate understanding of assistive devices/ modifications for ADL. 3=Patient will improve strength/tolerance for activity to enable patient to perform ADL's. OT Detention Goals Energy Efficiency Finance Manager Goals Time Frame: Jun 22, 2018 Eating (FIM): 5 1=Demonstrate adherence to instructed precautions during ADL tasks. 2=Patient will verbalize/demonstrate understanding of assistive devices/ modifications for ADL. 3=Patient will improve strength/tolerance for activity to enable patient to perform ADL's. OT Education/Plan Problem List/Assessment Assessment: Decreased Activ Tolerance, Decreased Safety Aware, Decreased UE Strength, Dependent Transfers, Impaired Bed Mobility, Impaired Coordination, Impaired Funct Balance, Impaired I ADL's, Impaired Self-Care Skills, Restricted Funct UE ROM Pt demonstrates decreased mobility, strength, activity tolerance, cognition, and safety awareness. Unsure of PLOF. Pt to benefit from OT to address increased independence for feeding. Discharge Recommendations Plan/Recommendations: Continue POC Therapy D/C Recommendations: 24 hr Supervision Treatment Plan/Plan of Care Treatment,Training & Education: Yes Patient would benefit from OT for education, treatment and training to promote independence in ADL's, mobility, safety and/or upper extremity function for ADL' s. Plan of Care: ADL Retraining, Functional Mobility, UE Funct Exercise/Act Treatment Duration: Jun 22, 2018 Frequency: 5 times per week Estimated Hrs Per Day: .25 hour per day Rehab Potential: Guarded Time/GCodes Start Time: 11:15 Stop Time: 11:30 Total Time Billed (hr/min): 15 Billed Treatment Time 1, Ex MEDINA BYRNES OT Jun 18, 2018 14:36
--- NOTE | 2018-06-19 19:24 | Physician Query Clarification ---
PQ-Present on Admission Admission/Discharge Admission Date: Jun 14, 2018 at 11:59 Discharge Date: Jun 18, 2018 at 13:59 Question: SEPSIS was documented in the discharge summary and your 06/18 progress note only. Can you specify if this condition was present on admission? Please document a response below. PHYSICIAN RESPONSE Condition was Present on Admit: Yes Explanation of clincal finding Demented patient sent to the emergency room with the observation of increased confusion. He had a white blood count of 15,300, pyuria and confusion which would be consistent with Sirs. The pyuria and apparent pneumonia on chest x- ray make him sepsis by definition. In responding to this query, please exercise your independent professional judgment. The purpose of this communication is to more accurately reflect the complexity of your patients condition. The fact that a question is asked does not imply that any particular answer is desired or expected. Thank you for your timely response to this clarification. Requestors name: [ ] Phone # [ ] THIS PHYSICIAN QUERY FORM IS A PERMANENT PART OF THE MEDICAL RECORD KRISH DISLA Jun 19, 2018 19:24 SONIA TEJEDA MD Jul 04, 2018 13:47
== END 2018-06-18 13:59 | DRG 871 ==
LOC: EDUNIT# 10:23 → ER 10:25 → 4TH 11:59
PROVIDERS: ADMIT Internal Medicine; ATTEND Internal Medicine
DX: A41.9 Sepsis, unspecified organism (principal); N30.00 Acute cystitis without hematuria; J18.9 Pneumonia, unspecified organism; B96.4 Proteus (mirabilis) (morganii) as the cause of diseases classified elsewhere; R19.7 Diarrhea, unspecified; R53.1 Weakness; G30.9 Alzheimer's disease, unspecified; F02.80 Dementia in other diseases classified elsewhere, unspecified severity, without behavioral disturbance, psychotic disturbance, mood disturbance, and anxiety; R26.2 Difficulty in walking, not elsewhere classified; I10 Essential (primary) hypertension; E78.00 Pure hypercholesterolemia, unspecified; M19.91 Primary osteoarthritis, unspecified site; D72.823 Leukemoid reaction; Z74.2 Need for assistance at home and no other household member able to render care
CPT/HCPCS: 36415; 51701; 71045; 80053; 80061; 81000; 83605; 83735; 83874; 83880; 84484; 85007; 85025; 85027; 85610; 85730; 87040; 87077; 87088; 87186; 93005; 93041; 94640; 94760; 96365

== ENCOUNTER → 2018-09-03 | Outpatient (CLI) | payer MEDICARE ==
[~2018-09-03] MED LIST changes: +AMOX-358 PO
[2018-09-03 16:47] LABS: BILIRUBIN,URINE NEGATIVE (NEGATIVE); CLARITY,URINE SLIGHTLY CLOUDY; COLOR,URINE YELLOW; GLUCOSE, URINE (UA) NEGATIVE (NEGATIVE); KETONES,URINE NEGATIVE (NEGATIVE); LEUKOCYTE ESTERASE ,URINE 3+ (NEGATIVE); NITRITE,URINE NEGATIVE (NEGATIVE); PH,URINE 6.5 (5-9); PROTEIN,URINE 2+ (NEGATIVE); UROBILINOGEN,URINE NORMAL (NORMAL)
[2018-09-03 16:54] LABS: BACTERIA,URINE FEW /HPF; SQUAMOUS EPITHELIAL CELL,UR RARE /HPF; WBC,URINE 50-100 /HPF
== END ==
PROVIDERS: ATTEND Family Medicine
DX: R45.4 Irritability and anger (principal); R82.90 Unspecified abnormal findings in urine
CPT/HCPCS: 81000; 87088

== ENCOUNTER 2018-09-16 11:00 | Inpatient (IN) | payer MEDICARE ==
[~2018-09-16] VITALS: Ht 185.4 cm; Wt 74.1 kg
--- OUTSIDE RECORDS SUMMARY | 2018-09-16 11:04 | XMS REPORT | Continuity of Care Document ---
Author Organization Unknown Address Unknown Allergies Active Description Code Type Severity Reaction Onset Reported/Identified Relationship to Patient Clinical Status Yes Latex, Natural Rubber [id number] Drug Allergy Severe RASH AND INFLAM 05/24/2018 Medications There is no data. 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 05/21/2013 STEPHANY BARLOW MD R Ot 574.10 CHOLELITH W CHOLECYS NEC 05/21/2013 STEPHANY BARLOW MD Ot 599.0 URIN TRACT INFECTION NOS 05/21/2013 STEPHANY BARLOW MD R Ot V03.82 PROPHYLACTIC VACC AGAINST STREPTOCOCCUS 05/21/2013 STEPHANY BARLOW MD R Ot V04.81 ND FOR PROPHYLACTIC VACCIN AND INOCULATI 05/21/2013 STEPHANY BARLOW MD R Ot V15.82 HISTORY OF TOBACCO USE 05/29/2014 Ot 041.49 OTHER AND UNSPECIFIED ESCHERICHIA COLI [ 05/29/2014 Ot 294.20 DEMENTIA, UNSPECIFIED, WITHOUT BEHAVIORA 05/29/2014 Ot 564.00 UNSPEC CONSTIPATION 05/29/2014 Ot 578.1 BLOOD IN STOOL 05/29/2014 Ot 599.0 URIN TRACT INFECTION NOS 05/29/2014 Ot 716.90 ARTHROPATHY NOS- UNSPEC 05/29/2014 Ot 784.3 APHASIA 05/29/2014 Ot 786.50 CHEST PAIN NOS 05/29/2014 Ot V03.82 PROPHYLACTIC VACC AGAINST STREPTOCOCCUS 05/29/2014 Ot V04.81 ND FOR PROPHYLACTIC VACCIN AND INOCULATI 05/29/2014 Ot V15.82 HISTORY OF TOBACCO USE 02/06/2017 STEPHANY BARLOW MD Ot 729.5 PAIN IN LIMB 02/07/2017 STEPHANY BARLOW MD R Ot R05 COUGH 02/07/2017 STEPHANY BARLOW MD R Ot R09.89 OTH SYMPTOMS AND SIGNS INVOLVING THE CIR 02/28/2017 STEPHANY BARLOW MD Ot R05 COUGH 02/28/2017 STEPHANY BARLOW MD Ot R09.89 OTH SYMPTOMS AND SIGNS INVOLVING THE CIR 05/09/2017 STEPHANY BARLOW MD Ot I49.9 CARDIAC ARRHYTHMIA, UNSPECIFIED 05/30/2017 STEPHANY BARLOW MD Ot I49.9 CARDIAC ARRHYTHMIA, UNSPECIFIED 05/27/2018 ANG ERVIN MD Ot B96.4 PROTEUS (MIRABILIS) (MORGANII) CAUSING D 05/27/2018 ANG ERVIN MD Ot E78.00 PURE HYPERCHOLESTEROLEMIA, UNSPECIFIED 05/27/2018 ANG ERVIN MD Ot F03.90 UNSPECIFIED DEMENTIA WITHOUT BEHAVIORAL 05/27/2018 ANG ERVIN MD Ot I10 ESSENTIAL (PRIMARY) HYPERTENSION 05/27/2018 ANG ERVIN MD Ot K59.09 OTHER CONSTIPATION 05/27/2018 ANG ERVIN MD Ot M19.91 PRIMARY OSTEOARTHRITIS, UNSPECIFIED SITE 05/27/2018 ANG ERVIN MD Ot N28.9 DISORDER OF KIDNEY AND URETER, UNSPECIFI 05/27/2018 ANG ERVIN MD Ot N39.0 URINARY TRACT INFECTION, SITE NOT SPECIF 05/27/2018 ANG ERVIN MD Ot R19.7 DIARRHEA, UNSPECIFIED 05/27/2018 ANG ERVIN MD, Ot R32 UNSPECIFIED URINARY INCONTINENCE 05/27/2018 ANG ERVIN MD Ot R53.1 WEAKNESS 05/27/2018 ANG ERVIN MD, Ot Z87.442 PERSONAL HISTORY OF URINARY CALCULI 05/27/2018 ANG ERVIN MD M Ot 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, UNSPECIF 06/15/2018 STEPHANY BARLOW MD R Ot 729.5 PAIN IN LIMB 06/15/2018 STEPHANY BARLOW MD R Ot R05 COUGH 06/15/2018 STEPHANY BARLOW MD R Ot R09.89 OTH SYMPTOMS AND SIGNS INVOLVING THE CIR 06/15/2018 STEPHANY BARLOW MD Ot I49.9 CARDIAC ARRHYTHMIA, UNSPECIFIED 06/15/2018 STEPHANY BARLOW MD R Ot 729.5 PAIN IN LIMB 06/15/2018 STEPHANY BARLOW MD R Ot R05 COUGH 06/15/2018 STEPHANY BARLOW MD Ot R09.89 OTH SYMPTOMS AND SIGNS INVOLVING THE CIR 06/15/2018 STEPHANY BARLOW MD R Ot I49.9 CARDIAC ARRHYTHMIA, UNSPECIFIED 06/18/2018 ARRON RINCON MARGUERITE Ot A41.9 SEPSIS, UNSPECIFIED ORGANISM 06/18/2018 ARRON RINCON MARGUERITE Ot B96.4 PROTEUS (MIRABILIS) (MORGANII) CAUSING D 06/18/2018 ARRON RINCON MARGUERITE Ot D72.823 LEUKEMOID REACTION 06/18/2018 ARRON RINCON MARGUERITE Ot E78.00 PURE HYPERCHOLESTEROLEMIA, UNSPECIFIED 06/18/2018 ARRON RINCON MARGUERITE Ot F02.80 DEMENTIA IN OTH DISEASES CLASSD ELSWHR W 06/18/2018 ARRON RINCON MARGUERITE Ot G30.9 ALZHEIMER'S DISEASE, UNSPECIFIED 06/18/2018 ARRON RINCON MARGUERITE Ot I10 ESSENTIAL (PRIMARY) HYPERTENSION 06/18/2018 ARRON RINCON MARGUERITE Ot J18.9 PNEUMONIA, UNSPECIFIED ORGANISM 06/18/2018 ARRON RINCON MARGUERITE Ot M19.91 PRIMARY OSTEOARTHRITIS, UNSPECIFIED SITE 06/18/2018 ARRON RINCON MARGUERITE Ot N30.00 ACUTE CYSTITIS WITHOUT HEMATURIA 06/18/2018 ARRON RINCON MARGUERITE Ot R19.7 DIARRHEA, UNSPECIFIED 06/18/2018 ARRON RINCON MARGUERITE Ot R26.2 DIFFICULTY IN WALKING, NOT ELSEWHERE CLA 06/18/2018 ARRON RINCON MARGUERITE Ot R53.1 WEAKNESS 06/18/2018 ARRON RINCON MARGUERITE Ot Z74.2 NEED FOR ASSIST AT HOME NO HOUSE MEMB 09/06/2018 YEN GUILLAUME, STEPHANY Cortez Ot R45.4 IRRITABILITY AND ANGER 09/06/2018 STEPHANY BARLOW MD Ot R82.90 UNSPECIFIED ABNORMAL FINDINGS IN URINE 09/12/2018 STEPHANY BRALOW MD Ot R45.4 IRRITABILITY AND ANGER 09/12/2018 STEPHANY BARLOW MD Ot R82.90 UNSPECIFIED ABNORMAL FINDINGS IN URINE Procedures Code Description Performed By Performed On 51.23 LAPAROSCOPIC CHOLECYSTECTOMY 05/20/2013 Results Test Result Range Complete blood count (CBC) with automated white blood cell (WBC) differential - 05/24/18 11:32 Blood leukocytes automated count (number/volume) 11.2 10*3/uL 4.3-11.0 Blood erythrocytes automated count (number/volume) 4.75 10*6/uL 4.35-5.85 Venous blood hemoglobin measurement (mass/volume) 14.3 g/dL 13.3-17.7 Blood hematocrit (volume fraction) 44 % 40-54 Automated erythrocyte mean corpuscular volume 92 [foz_us] 80-99 Automated erythrocyte mean corpuscular hemoglobin (mass per erythrocyte) 30 pg 25-34 Automated erythrocyte mean corpuscular hemoglobin concentration measurement (mass/volume) 33 g/dL 32-36 Automated erythrocyte distribution width ratio 14.2 % 10.0- 14.5 Automated blood platelet count (count/volume) 206 10*3/uL 130-400 Automated blood platelet mean volume measurement 9.4 [foz_us] 7.4-10.4 Automated blood neutrophils/100 leukocytes 90 % 42-75 Automated blood lymphocytes/100 leukocytes 4 % 12-44 Blood monocytes/100 leukocytes 6 % 0-12 Automated blood eosinophils/100 leukocytes 0 % 0-10 Automated blood basophils/100 leukocytes 0 % 0-10 Blood neutrophils automated count (number/volume) 10.0 10*3 1.8-7.8 Blood lymphocytes automated count (number/volume) 0.4 10*3 1.0-4.0 Blood monocytes automated count (number/volume) 0.7 10*3 0.0- 1.0 Automated eosinophil count 0.0 10*3/uL 0.0-0.3 Automated blood basophil count (count/volume) 0.0 10*3/uL 0.0-0.1 Comprehensive metabolic panel - 05/24/18 11:32 Serum or plasma sodium measurement (moles/volume) 142 mmol/L 135-145 Serum or plasma potassium measurement (moles/volume) 4.3 mmol/L 3.6-5.0 Serum or plasma chloride measurement (moles/volume) 110 mmol/L 98-107 Carbon dioxide 21 mmol/L 21-32 Serum or plasma anion gap determination (moles/volume) 11 mmol/L 5-14 Serum or plasma urea nitrogen measurement (mass/volume) 24 mg/dL 7-18 Serum or plasma creatinine measurement (mass/volume) 1.44 mg/dL 0.60-1.30 Serum or plasma urea nitrogen/creatinine mass ratio 17 NRG Serum or plasma creatinine measurement with calculation of estimated glomerular filtration rate 48 NRG Serum or plasma glucose measurement (mass/volume) 158 mg/dL 70-105 Serum or plasma calcium measurement (mass/volume) 9.0 mg/dL 8.5-10.1 Serum or plasma total bilirubin measurement (mass/volume) 0.9 mg/dL 0.1-1.0 Serum or plasma alkaline phosphatase measurement (enzymatic activity/volume) 71 U/L 40-136 Serum or plasma aspartate aminotransferase measurement (enzymatic activity/volume) 20 U/L 5-34 Serum or plasma alanine aminotransferase measurement (enzymatic activity/volume) 12 U/L 0-55 Serum or plasma protein measurement (mass/volume) 6.7 g/dL 6.4-8.2 Serum or plasma albumin measurement (mass/volume) 3.9 g/dL 3.2-4.5 CALCIUM CORRECTED 9.1 mg/dL 8.5-10.1 Magnesium - 05/24/18 11:32 Magnesium 2.1 mg/dL 1.8-2.4 Blood manual differential performed detection - 05/24/18 11:32 Blood monocytes/100 leukocytes 13 % NRG Manual blood segmented neutrophils/100 leukocytes 85 % NRG Manual blood lymphocytes/100 leukocytes 2 % NRG Blood erythrocyte morphology finding identification NORMAL NRG Complete urinalysis with reflex to culture - 05/24/18 12:43 Urine color determination YELLOW NRG Urine clarity determination VERY CLOUDY NRG Urine pH measurement by test strip 8 5-9 Specific gravity of urine by test strip 1.010 1.016-1.022 Urine protein assay by test strip, semi-quantitative 3+ NEGATIVE Urine glucose detection by automated test strip NEGATIVE NEGATIVE Erythrocytes detection in urine sediment by light microscopy 4+ NEGATIVE Urine ketones detection by automated test strip NEGATIVE NEGATIVE Urine nitrite detection by test strip NEGATIVE NEGATIVE Urine total bilirubin detection by test strip NEGATIVE NEGATIVE Urine urobilinogen measurement by automated test strip (mass/volume) NORMAL NORMAL Urine leukocyte esterase detection by dipstick 3+ NEGATIVE Automated urine sediment erythrocyte count by microscopy (number/high power field) [HPF] NRG Automated urine sediment leukocyte count by microscopy (number/high power field) TNTC NRG Bacteria detection in urine sediment by light microscopy LARGE NRG Crystals detection in urine sediment by light microscopy NONE NRG Casts detection in urine sediment by light microscopy NONE NRG Mucus detection in urine sediment by light microscopy NEGATIVE NRG Complete urinalysis with reflex to culture YES NRG Bacterial urine culture - 05/24/18 12:43 Bacterial urine culture [id number] NRG COLONY COUNT >100,000/ML NRG FTX;REPORTABLE SUSCEPTIBILITY REPORTED 05-26-2018, 1305. [facility] RML Sensitivity Panel - 05/24/18 12:43 Gentamicin susceptibility test by minimum inhibitory concentration <= NRG Trimethoprim/sulfamethoxazole susceptibility test by minimum inhibitoryconcentration S NRG Levofloxacin susceptibility test by minimum inhibitory concentration <= NRG Ampicillin susceptibility test by minimum inhibitory concentration <= NRG Cefazolin susceptibility test by minimum inhibitory concentration 4 NRG Ceftriaxone susceptibility test by minimum inhibitory concentration <= NRG Ciprofloxacin susceptibility test by minimum inhibitory concentration <= NRG Nitrofurantoin susceptibility test by minimum inhibitory concentration > NRG Amoxicillin and clavulanate potassium susc GILMAR <= NRG Complete blood count (CBC) with automated white blood cell (WBC) differential - 05/26/18 05:34 Blood leukocytes automated count (number/volume) 8.8 10*3/uL 4.3-11.0 Blood erythrocytes automated count (number/volume) 4.04 10*6/uL 4.35-5.85 Venous blood hemoglobin measurement (mass/volume) 12.4 g/dL 13.3-17.7 Blood hematocrit (volume fraction) 37 % 40-54 Automated erythrocyte mean corpuscular volume 92 [foz_us] 80-99 Automated erythrocyte mean corpuscular hemoglobin (mass per erythrocyte) 31 pg 25-34 Automated erythrocyte mean corpuscular hemoglobin concentration measurement (mass/volume) 33 g/dL 32-36 Automated erythrocyte distribution width ratio 14.0 % 10.0- 14.5 Automated blood platelet count (count/volume) 172 10*3/uL 130-400 Automated blood platelet mean volume measurement 9.5 [foz_us] 7.4-10.4 Automated blood neutrophils/100 leukocytes 79 % 42-75 Automated blood lymphocytes/100 leukocytes 11 % 12-44 Blood monocytes/100 leukocytes 9 % 0-12 Automated blood eosinophils/100 leukocytes 1 % 0-10 Automated blood basophils/100 leukocytes 0 % 0-10 Blood neutrophils automated count (number/volume) 6.9 10*3 1.8-7.8 Blood lymphocytes automated count (number/volume) 0.9 10*3 1.0-4.0 Blood monocytes automated count (number/volume) 0.8 10*3 0.0- 1.0 Automated eosinophil count 0.1 10*3/uL 0.0-0.3 Automated blood basophil count (count/volume) 0.0 10*3/uL 0.0-0.1 Whole blood basic metabolic panel - 05/26/18 05:34 Serum or plasma sodium measurement (moles/volume) 140 mmol/L 135-145 Serum or plasma potassium measurement (moles/volume) 3.7 mmol/L 3.6-5.0 Serum or plasma chloride measurement (moles/volume) 112 mmol/L 98-107 Carbon dioxide 20 mmol/L 21-32 Serum or plasma anion gap determination (moles/volume) 8 mmol/L 5-14 Serum or plasma urea nitrogen measurement (mass/volume) 16 mg/dL 7-18 Serum or plasma creatinine measurement (mass/volume) 0.74 mg/dL 0.60-1.30 Serum or plasma urea nitrogen/creatinine mass ratio 22 NRG Serum or plasma creatinine measurement with calculation of estimated glomerular filtration rate > NRG Serum or plasma glucose measurement (mass/volume) 103 mg/dL 70-105 Serum or plasma calcium measurement (mass/volume) 8.5 mg/dL 8.5-10.1 Complete blood count (CBC) with automated white blood cell (WBC) differential - 06/14/18 10:30 Blood leukocytes automated count (number/volume) 15.3 10*3/uL 4.3-11.0 Blood erythrocytes automated count (number/volume) 4.82 10*6/uL 4.35-5.85 Venous blood hemoglobin measurement (mass/volume) 14.5 g/dL 13.3-17.7 Blood hematocrit (volume fraction) 44 % 40-54 Automated erythrocyte mean corpuscular volume 92 [foz_us] 80-99 Automated erythrocyte mean corpuscular hemoglobin (mass per erythrocyte) 30 pg 25-34 Automated erythrocyte mean corpuscular hemoglobin concentration measurement (mass/volume) 33 g/dL 32-36 Automated erythrocyte distribution width ratio 13.8 % 10.0- 14.5 Automated blood platelet count (count/volume) 257 10*3/uL 130-400 Automated blood platelet mean volume measurement 9.5 [foz_us] 7.4-10.4 Automated blood neutrophils/100 leukocytes 82 % 42-75 Automated blood lymphocytes/100 leukocytes 9 % 12-44 Blood monocytes/100 leukocytes 9 % 0-12 Automated blood eosinophils/100 leukocytes 0 % 0-10 Automated blood basophils/100 leukocytes 0 % 0-10 Blood neutrophils automated count (number/volume) 12.5 10*3 1.8-7.8 Blood lymphocytes automated count (number/volume) 1.3 10*3 1.0-4.0 Blood monocytes automated count (number/volume) 1.4 10*3 0.0- 1.0 Automated eosinophil count 0.0 10*3/uL 0.0-0.3 Automated blood basophil count (count/volume) 0.0 10*3/uL 0.0-0.1 Comprehensive metabolic panel - 06/14/18 10:30 Serum or plasma sodium measurement (moles/volume) 138 mmol/L 135-145 Serum or plasma potassium measurement (moles/volume) 4.1 mmol/L 3.6-5.0 Serum or plasma chloride measurement (moles/volume) 105 mmol/L 98-107 Carbon dioxide 23 mmol/L 21-32 Serum or plasma anion gap determination (moles/volume) 10 mmol/L 5-14 Serum or plasma urea nitrogen measurement (mass/volume) 18 mg/dL 7-18 Serum or plasma creatinine measurement (mass/volume) 1.16 mg/dL 0.60-1.30 Serum or plasma urea nitrogen/creatinine mass ratio 16 NRG Serum or plasma creatinine measurement with calculation of estimated glomerular filtration rate > NRG Serum or plasma glucose measurement (mass/volume) 137 mg/dL 70-105 Serum or plasma calcium measurement (mass/volume) 9.5 mg/dL 8.5-10.1 Serum or plasma total bilirubin measurement (mass/volume) 1.1 mg/dL 0.1-1.0 Serum or plasma alkaline phosphatase measurement (enzymatic activity/volume) 66 U/L 40-136 Serum or plasma aspartate aminotransferase measurement (enzymatic activity/volume) 17 U/L 5-34 Serum or plasma alanine aminotransferase measurement (enzymatic activity/volume) 10 U/L 0-55 Serum or plasma protein measurement (mass/volume) 7.1 g/dL 6.4-8.2 Serum or plasma albumin measurement (mass/volume) 4.0 g/dL 3.2-4.5 CALCIUM CORRECTED 9.5 mg/dL 8.5-10.1 Magnesium - 06/14/18 10:30 Magnesium 2.0 mg/dL 1.8-2.4 PT panel in platelet poor plasma by coagulation assay - 06/14/18 10:30 Prothrombin time (PT) in platelet poor plasma by coagulation assay 14.5 s 12.2-14.7 INR in platelet poor plasma or blood by coagulation assay 1.1 0.8-1.4 Activated partial thromboplastin time (aPTT) in platelet poor plasma bycoagulation assay - 06/14/18 10:30 Activated partial thromboplastin time (aPTT) in platelet poor plasma bycoagulation assay 32 s 24-35 Serum or plasma troponin i.cardiac measurement (mass/volume) - 06/14/18 10:30 Serum or plasma troponin i.cardiac measurement (mass/volume) < ng/mL <0.028 Myoglobin, serum - 06/14/18 10:30 Myoglobin, serum 59.9 ng/mL 10.0-92.0 Blood manual differential performed detection - 06/14/18 10:30 Blood monocytes/100 leukocytes 11 % NRG Manual blood segmented neutrophils/100 leukocytes 77 % NRG Blood band neutrophils/100 leukocytes 0 % NRG Manual blood lymphocytes/100 leukocytes 12 % NRG Manual eosinophils/100 leukocytes in nose 0 % NRG Manual blood basophils/100 leukocytes 0 % NRG Blood ovalocytes detection by light microscopy SLIGHT NRG Serum or plasma lithium measurement (moles/volume) - 06/14/18 10:30 BNP level 50.3 pg/mL <100.0 Complete urinalysis with reflex to culture - 06/14/18 10:35 Urine color determination YELLOW NRG Urine clarity determination SLIGHTLY CLOUDY NRG Urine pH measurement by test strip 8 5-9 Specific gravity of urine by test strip 1.010 1.016-1.022 Urine protein assay by test strip, semi-quantitative 3+ NEGATIVE Urine glucose detection by automated test strip NEGATIVE NEGATIVE Erythrocytes detection in urine sediment by light microscopy 4+ NEGATIVE Urine ketones detection by automated test strip 1+ NEGATIVE Urine nitrite detection by test strip NEGATIVE NEGATIVE Urine total bilirubin detection by test strip NEGATIVE NEGATIVE Urine urobilinogen measurement by automated test strip (mass/volume) NORMAL NORMAL Urine leukocyte esterase detection by dipstick 3+ NEGATIVE Automated urine sediment erythrocyte count by microscopy (number/high power field) [HPF] NRG Automated urine sediment leukocyte count by microscopy (number/high power field) > [HPF] NRG Bacteria detection in urine sediment by light microscopy LARGE NRG Crystals detection in urine sediment by light microscopy NONE NRG Casts detection in urine sediment by light microscopy NONE NRG Mucus detection in urine sediment by light microscopy NEGATIVE NRG Complete urinalysis with reflex to culture YES NRG Bacterial urine culture - 06/14/18 10:35 Bacterial urine culture [id number] NRG COLONY COUNT >100,000/ML NRG FTX;REPORTABLE SUSCEPTIBILITY REPORTED 06-16-185. [facility] RML Sensitivity Panel - 06/14/18 10:35 Gentamicin susceptibility test by minimum inhibitory concentration <= NRG Trimethoprim/sulfamethoxazole susceptibility test by minimum inhibitoryconcentration S NRG Levofloxacin susceptibility test by minimum inhibitory concentration <= NRG Ampicillin susceptibility test by minimum inhibitory concentration <= NRG Cefazolin susceptibility test by minimum inhibitory concentration 4 NRG Ceftriaxone susceptibility test by minimum inhibitory concentration <= NRG Ciprofloxacin susceptibility test by minimum inhibitory concentration <= NRG Nitrofurantoin susceptibility test by minimum inhibitory concentration > NRG Amoxicillin and clavulanate potassium susc GILMAR <= NRG Blood lactic acid measurement (moles/volume) - 06/14/18 11:35 Blood lactic acid measurement (moles/volume) 1.03 mmol/L 0.50- 2.00 Bacterial blood culture - 06/14/18 11:35 Bacterial blood culture NG NRG Bacterial blood culture - 06/14/18 11:52 Bacterial blood culture NG NRG Complete blood count (CBC) with automated white blood cell (WBC) differential - 06/15/18 04:20 Blood leukocytes automated count (number/volume) 9.8 10*3/uL 4.3-11.0 Blood erythrocytes automated count (number/volume) 4.17 10*6/uL 4.35-5.85 Venous blood hemoglobin measurement (mass/volume) 12.7 g/dL 13.3-17.7 Blood hematocrit (volume fraction) 39 % 40-54 Automated erythrocyte mean corpuscular volume 93 [foz_us] 80-99 Automated erythrocyte mean corpuscular hemoglobin (mass per erythrocyte) 30 pg 25-34 Automated erythrocyte mean corpuscular hemoglobin concentration measurement (mass/volume) 33 g/dL 32-36 Automated erythrocyte distribution width ratio 13.8 % 10.0- 14.5 Automated blood platelet count (count/volume) 230 10*3/uL 130-400 Automated blood platelet mean volume measurement 9.5 [foz_us] 7.4-10.4 Automated blood neutrophils/100 leukocytes 79 % 42-75 Automated blood lymphocytes/100 leukocytes 10 % 12-44 Blood monocytes/100 leukocytes 9 % 0-12 Automated blood eosinophils/100 leukocytes 2 % 0-10 Automated blood basophils/100 leukocytes 0 % 0-10 Blood neutrophils automated count (number/volume) 7.8 10*3 1.8-7.8 Blood lymphocytes automated count (number/volume) 1.0 10*3 1.0-4.0 Blood monocytes automated count (number/volume) 0.9 10*3 0.0- 1.0 Automated eosinophil count 0.2 10*3/uL 0.0-0.3 Automated blood basophil count (count/volume) 0.0 10*3/uL 0.0-0.1 Comprehensive metabolic panel - 06/15/18 04:20 Serum or plasma sodium measurement (moles/volume) 140 mmol/L 135-145 Serum or plasma potassium measurement (moles/volume) 4.2 mmol/L 3.6-5.0 Serum or plasma chloride measurement (moles/volume) 110 mmol/L 98-107 Carbon dioxide 22 mmol/L 21-32 Serum or plasma anion gap determination (moles/volume) 8 mmol/L 5-14 Serum or plasma urea nitrogen measurement (mass/volume) 16 mg/dL 7-18 Serum or plasma creatinine measurement (mass/volume) 0.93 mg/dL 0.60-1.30 Serum or plasma urea nitrogen/creatinine mass ratio 17 NRG Serum or plasma creatinine measurement with calculation of estimated glomerular filtration rate > NRG Serum or plasma glucose measurement (mass/volume) 97 mg/dL 70-105 Serum or plasma calcium measurement (mass/volume) 8.8 mg/dL 8.5-10.1 Serum or plasma total bilirubin measurement (mass/volume) 0.5 mg/dL 0.1-1.0 Serum or plasma alkaline phosphatase measurement (enzymatic activity/volume) 60 U/L 40-136 Serum or plasma aspartate aminotransferase measurement (enzymatic activity/volume) 15 U/L 5-34 Serum or plasma alanine aminotransferase measurement (enzymatic activity/volume) 9 U/L 0-55 Serum or plasma protein measurement (mass/volume) 6.2 g/dL 6.4-8.2 Serum or plasma albumin measurement (mass/volume) 3.3 g/dL 3.2-4.5 CALCIUM CORRECTED 9.4 mg/dL 8.5-10.1 Lipid 1996 panel - 06/15/18 04:20 Serum or plasma triglyceride measurement (mass/volume) 46 mg/dL <150 Serum or plasma cholesterol measurement (mass/volume) 149 mg/dL < 200 Serum or plasma cholesterol in HDL measurement (mass/volume) 44 mg/dL 40-60 Cholesterol in LDL [mass/volume] in serum or plasma by direct assay 96 mg/dL 1-129 Serum or plasma cholesterol in VLDL measurement (mass/volume) 9 mg/dL 5-40 Complete blood count (CBC) with automated white blood cell (WBC) differential - 06/16/18 05:35 Blood leukocytes automated count (number/volume) 7.0 10*3/uL 4.3-11.0 Blood erythrocytes automated count (number/volume) 4.25 10*6/uL 4.35-5.85 Venous blood hemoglobin measurement (mass/volume) 12.8 g/dL 13.3-17.7 Blood hematocrit (volume fraction) 39 % 40-54 Automated erythrocyte mean corpuscular volume 92 [foz_us] 80-99 Automated erythrocyte mean corpuscular hemoglobin (mass per erythrocyte) 30 pg 25-34 Automated erythrocyte mean corpuscular hemoglobin concentration measurement (mass/volume) 33 g/dL 32-36 Automated erythrocyte distribution width ratio 13.9 % 10.0- 14.5 Automated blood platelet count (count/volume) 230 10*3/uL 130-400 Automated blood platelet mean volume measurement 9.4 [foz_us] 7.4-10.4 Automated blood neutrophils/100 leukocytes 66 % 42-75 Automated blood lymphocytes/100 leukocytes 15 % 12-44 Blood monocytes/100 leukocytes 12 % 0-12 Automated blood eosinophils/100 leukocytes 8 % 0-10 Automated blood basophils/100 leukocytes 0 % 0-10 Blood neutrophils automated count (number/volume) 4.6 10*3 1.8-7.8 Blood lymphocytes automated count (number/volume) 1.0 10*3 1.0-4.0 Blood monocytes automated count (number/volume) 0.8 10*3 0.0- 1.0 Automated eosinophil count 0.5 10*3/uL 0.0-0.3 Automated blood basophil count (count/volume) 0.0 10*3/uL 0.0-0.1 Comprehensive metabolic panel - 06/16/18 05:35 Serum or plasma sodium measurement (moles/volume) 142 mmol/L 135-145 Serum or plasma potassium measurement (moles/volume) 3.8 mmol/L 3.6-5.0 Serum or plasma chloride measurement (moles/volume) 110 mmol/L 98-107 Carbon dioxide 24 mmol/L 21-32 Serum or plasma anion gap determination (moles/volume) 8 mmol/L 5-14 Serum or plasma urea nitrogen measurement (mass/volume) 14 mg/dL 7-18 Serum or plasma creatinine measurement (mass/volume) 0.85 mg/dL 0.60-1.30 Serum or plasma urea nitrogen/creatinine mass ratio 16 NRG Serum or plasma creatinine measurement with calculation of estimated glomerular filtration rate > NRG Serum or plasma glucose measurement (mass/volume) 87 mg/dL 70-105 Serum or plasma calcium measurement (mass/volume) 8.8 mg/dL 8.5-10.1 Serum or plasma total bilirubin measurement (mass/volume) 0.4 mg/dL 0.1-1.0 Serum or plasma alkaline phosphatase measurement (enzymatic activity/volume) 52 U/L 40-136 Serum or plasma aspartate aminotransferase measurement (enzymatic activity/volume) 16 U/L 5-34 Serum or plasma alanine aminotransferase measurement (enzymatic activity/volume) 10 U/L 0-55 Serum or plasma protein measurement (mass/volume) 5.9 g/dL 6.4-8.2 Serum or plasma albumin measurement (mass/volume) 3.3 g/dL 3.2-4.5 CALCIUM CORRECTED 9.4 mg/dL 8.5-10.1 Complete urinalysis with reflex to culture - 09/03/18 15:45 Urine color determination YELLOW NRG Urine clarity determination SLIGHTLY CLOUDY NRG Urine pH measurement by test strip 6.5 5-9 Specific gravity of urine by test strip 1.015 1.016-1.022 Urine protein assay by test strip, semi-quantitative 2+ NEGATIVE Urine glucose detection by automated test strip NEGATIVE NEGATIVE Erythrocytes detection in urine sediment by light microscopy 4+ NEGATIVE Urine ketones detection by automated test strip NEGATIVE NEGATIVE Urine nitrite detection by test strip NEGATIVE NEGATIVE Urine total bilirubin detection by test strip NEGATIVE NEGATIVE Urine urobilinogen measurement by automated test strip (mass/volume) NORMAL NORMAL Urine leukocyte esterase detection by dipstick 3+ NEGATIVE Automated urine sediment erythrocyte count by microscopy (number/high power field) [HPF] NRG Automated urine sediment leukocyte count by microscopy (number/high power field) [HPF] NRG Bacteria detection in urine sediment by light microscopy FEW NRG Squamous epithelial cells detection in urine sediment by light microscopy RARE NRG Crystals detection in urine sediment by light microscopy NONE NRG Casts detection in urine sediment by light microscopy NONE NRG Mucus detection in urine sediment by light microscopy NEGATIVE NRG Complete urinalysis with reflex to culture CULTURE PENDING NRG Bacterial urine culture - 09/03/18 15:45 Bacterial urine culture 3 OR MORE NRG COLONY COUNT 20,000 CFU/ML NRG FTX;REPORTABLE (GRAM POSITIVE) SUGGESTING PROBABLE NRG FREE TEXT ENTRY 2 COLLECTION CONTAMINATION WITH SKIN NRG FREE TEXT ENTRY 3 DAPHNE. NO SUSCEPTIBILITY PERFORMED NRG Encounters ACCT No. Visit Date/Time Discharge Status Pt. Type Provider Facility Loc./Unit Complaint [id number] 09/03/2018 16:33:00 09/03/2018 23:59:59 CLS Outpatient YEN GUILLAUME, STEPHANY [facility] MLF UA W CX [id number] 06/14/2018 11:59:00 06/18/2018 13:59:00 DIS Inpatient MARGUERITE HELLER DO [facility] 4TH LLL PNEUMONIA;UTI;WEAKNESS;DIARRHEA;DEMENTIA [id number] 05/24/2018 13:41:00 05/27/2018 13:00:00 DIS Inpatient ARCADIO GUILLAUME, ANG [facility] 4TH WEAKNESS;DIARRHEA [id number] 05/08/2017 15:22:00 05/08/2017 23:59:59 CLS Outpatient STEPHANY BARLOW MD [facility] CARD IRREGULAR RATE [id number] 02/06/2017 15:02:00 02/06/2017 23:59:59 CLS Outpatient STEPHANY BARLOW MD [facility] RAD R09.89 [id number] 06/17/2013 13:55:00 06/17/2013 23:59:59 CLS Outpatient STEPHANY BARLOW MD [facility] RAD SWELLING AROUND KNEE [id number] 05/16/2013 14:09:00 05/21/2013 14:15:00 DIS Inpatient STEPHANY BARLOW MD [facility] SURGICAL GALLBLADDER DISEASE UTI [id number] 05/26/2014 14:02:00 Document Registration [id number] 08/20/2009 10:15:00 Document Registration
[2018-09-16] MEDS ORDERED: LACTATED RINGERS 1,000 ML IV ONE (11:05)
[2018-09-16] MEDS ORDERED: CEFEPIME INJECTION 1,000 MG in WATER (STERILE) FOR INJECTION 10 ML IV ONE (11:15)
[2018-09-16 11:26] LABS: BASOPHILS % (AUTO) 0 % (0-10); EOSINOPHILS % (AUTO) 0 % (0-10); HEMATOCRIT 41 % (40-54); HEMOGLOBIN 14.2 G/DL (13.3-17.7); LYMPHOCYTES % (AUTO) 10 % (12-44); MEAN CORPUSCULAR HEMOGLOBIN 30 PG (25-34); MEAN CORPUSCULAR HGB CONC 34 G/DL (32-36); MEAN CORPUSCULAR VOLUME 87 FL (80-99); MEAN PLATELET VOLUME 9.4 FL (7.4-10.4); MONOCYTES # (AUTO) 1.4 X 10^3 (0.0-1.0); MONOCYTES % (AUTO) 14 % (0-12); NEUTROPHILS # (AUTO) 7.4 X 10^3 (1.8-7.8); NEUTROPHILS % (AUTO) 75 % (42-75); PLATELET COUNT 352 10^3/uL (130-400); RED CELL DISTRIBUTION WIDTH 13.6 % (10.0-14.5); WHITE BLOOD COUNT 9.8 10^3/uL (4.3-11.0)
[2018-09-16 11:37] LABS: INR 1.1 (0.8-1.4); PROTHROMBIN TIME PATIENT 14.7 SEC (12.2-14.7)
[2018-09-16 11:37] LABS: BILIRUBIN,URINE NEGATIVE (NEGATIVE); CLARITY,URINE VERY CLOUDY; COLOR,URINE YELLOW; GLUCOSE, URINE (UA) NEGATIVE (NEGATIVE); KETONES,URINE NEGATIVE (NEGATIVE); LEUKOCYTE ESTERASE ,URINE 3+ (NEGATIVE); NITRITE,URINE NEGATIVE (NEGATIVE); PH,URINE 8 (5-9); PROTEIN,URINE 4+ (NEGATIVE); UROBILINOGEN,URINE NORMAL (NORMAL)
[2018-09-16 11:45] LABS: ALBUMIN 3.4 GM/DL (3.2-4.5); BILIRUBIN,TOTAL 0.4 MG/DL (0.1-1.0); CALCIUM 8.8 MG/DL (8.5-10.1); CREATININE SERUM 1.96 MG/DL (0.60-1.30); POTASSIUM 4.3 MMOL/L (3.6-5.0); TOTAL PROTEIN 6.4 GM/DL (6.4-8.2)
[2018-09-16 11:48] LABS: AMORPHOUS SEDIMENT,UR MOD AMOR PHOSPHATE /LPF; BACTERIA,URINE MODERATE /HPF; RBC,URINE 25-50 /HPF; SQUAMOUS EPITHELIAL CELL,UR RARE /HPF; WBC,URINE >100 /HPF
--- NOTE | 2018-09-16 11:57 | Diagnostic Imaging Report ---
Indication: Dyspnea. Comparison: 06/15/2018. Findings: Retrocardiac heterogeneous opacities have improved but persist. No new airspace opacities in the visualized lung. Posterior lower lobes are poorly evaluated by portable radiography. Calcified left upper lobe pulmonary granulomas are present. No pleural effusion or pneumothorax. Stable enlargement of cardiac silhouette. Impression: 1. Chronic left basilar subsegmental atelectasis/scar. 2. No acute process by portable radiography. Dictated by: Dictated on workstation # [id number]
--- NOTE | 2018-09-16 12:05 | NUR ---
Pt taken fresh, warm blanket.
[2018-09-16] MEDS ORDERED: LORA0.5T PO (12:22)
--- OUTSIDE RECORDS SUMMARY | 2018-09-16 12:31 | XMS REPORT | Continuity of Care Document ---
Author Organization Unknown Address Unknown Allergies Active Description Code Type Severity Reaction Onset Reported/Identified Relationship to Patient Clinical Status Yes Latex, Natural Rubber [id number] Drug Allergy Severe RASH AND INFLAM 05/24/2018 [...] UNSPECIFIED ABNORMAL FINDINGS IN URINE 09/12/2018 STEPHANY BARLOW MD Ot R45.4 IRRITABILITY AND ANGER 09/12/2018 [...] culture - 05/24/18 12:43 Bacterial urine culture [id number] NRG COLONY COUNT >100,000/ML NRG FTX;REPORTABLE SUSCEPTIBILITY REPORTED 05-26-2018, 1305. [facility] RML Sensitivity Panel - 05/24/18 12:43 Gentamicin [...] culture - 06/14/18 10:35 Bacterial urine culture [id number] NRG COLONY COUNT >100,000/ML NRG FTX;REPORTABLE SUSCEPTIBILITY REPORTED 06-16-185. [facility] RML Sensitivity Panel - 06/14/18 10:35 Gentamicin [...] Status Pt. Type Provider Facility Loc./Unit Complaint [id number] 09/03/2018 16:33:00 09/03/2018 23:59:59 CLS Outpatient YEN GUILLAUME, STEPHANY [facility] UA W CX [id number] 06/14/2018 11:59:00 06/18/2018 13:59:00 DIS Inpatient MARGUERITE HELLER DO [facility] 4TH LLL PNEUMONIA;UTI;WEAKNESS;DIARRHEA;DEMENTIA [id number] 05/24/2018 13:41:00 05/27/2018 13:00:00 DIS Inpatient ARCADIO GUILLAUME, ANG Rubio [facility] 4TH WEAKNESS;DIARRHEA [id number] 05/08/2017 15:22:00 05/08/2017 23:59:59 CLS Outpatient STEPHANY BARLOW MD [facility] CARD IRREGULAR RATE [id number] 02/06/2017 15:02:00 02/06/2017 23:59:59 CLS Outpatient STEPHANY BARLOW MD [facility] RAD R09.89 [id number] 06/17/2013 13:55:00 06/17/2013 23:59:59 CLS Outpatient STEPHANY BARLOW MD [facility] RAD SWELLING AROUND KNEE [id number] 05/16/2013 14:09:00 05/21/2013 14:15:00 DIS Inpatient STEPHANY BARLOW MD [facility] SURGICAL GALLBLADDER DISEASE UTI [id number] 05/26/2014 14:02:00 Document Registration [id number] 08/20/2009 10:15:00 Document Registration
--- NOTE | 2018-09-16 13:00 | NUR ---
Medical nurse to call for report when available.
--- NOTE | 2018-09-16 13:47 | NUR ---
FLETCHERCHUCK Malena admitted to room 413-1, with an admitting diagnosis of UTI AND DEHY, on 09/16/18 from ER via [facility], accompanied by STAFF. CHUCK BYNUM introduced to surroundings, call light, bed controls, phone, TV, temperature control, lights, meal times, smoking policy, visitor policy, side rail policy, bathrooms and showers. CHUCK BYNUM UNABLE TO VERBALIZE understanding that [facility] is not responsible for the loss or damage to any personal effects or valuables that are kept in the patients posession during their hospitalization. The following Patient Care Plans were discussed with the PT: Discharge Planning, UTI AND PAIN. CHUCK BYNUM UNABLE TO VERBALIZE understanding of Interdisciplinary Patient Education. Patient WAS informed about the Rapid Response Team and its purpose.
[2018-09-16 14:03] VITALS: BP 120/57
[2018-09-16] MEDS: D5 1/2 NS W/KCL 20 MEQ/L 1,000 ML IV SCH ×2 (14:31→21:34)
--- NOTE | 2018-09-16 16:39 | NUR ---
HAS HAD 2 LARGE, LOOSE, INC STOOLS SINCE ADMISSION.
[2018-09-16 16:59] VITALS: BP 121/70
[2018-09-16] MEDS: CEFEPIME 1,000 MG/SWFI 10 ML IV PUSH IV SCH ×2 (18:31)
[2018-09-16 19:55] VITALS: BP 107/57
[2018-09-17 00:15] VITALS: BP 114/56
[2018-09-17] MEDS: CEFEPIME 1,000 MG/SWFI 10 ML IV PUSH IV SCH ×2 (04:02)
[2018-09-17] MEDS: D5 1/2 NS W/KCL 20 MEQ/L 1,000 ML IV SCH ×4 (04:02→23:41)
[2018-09-17 05:05] VITALS: BP 111/57
[2018-09-17 05:35] LABS: BASOPHILS % (AUTO) 0 % (0-10); EOSINOPHILS # (AUTO) 0.1 10^3/uL (0.0-0.3); EOSINOPHILS % (AUTO) 0 % (0-10); HEMATOCRIT 36 % (40-54); HEMOGLOBIN 11.9 G/DL (13.3-17.7); LYMPHOCYTES # (AUTO) 1.1 X 10^3 (1.0-4.0); LYMPHOCYTES % (AUTO) 4 % (12-44); MEAN CORPUSCULAR HEMOGLOBIN 29 PG (25-34); MEAN CORPUSCULAR HGB CONC 33 G/DL (32-36); MEAN CORPUSCULAR VOLUME 89 FL (80-99); MONOCYTES # (AUTO) 1.4 X 10^3 (0.0-1.0); MONOCYTES % (AUTO) 6 % (0-12); NEUTROPHILS # (AUTO) 21.8 X 10^3 (1.8-7.8); NEUTROPHILS % (AUTO) 90 % (42-75); PLATELET COUNT 262 10^3/uL (130-400); RED CELL DISTRIBUTION WIDTH 13.8 % (10.0-14.5); WHITE BLOOD COUNT 24.3 10^3/uL (4.3-11.0)
[2018-09-17 05:54] LABS: ALANINE AMINOTRANSFERASE 14 U/L (0-55); ALBUMIN 2.7 GM/DL (3.2-4.5); ALKALINE PHOSPHATASE 59 U/L (40-136); BILIRUBIN,TOTAL 0.4 MG/DL (0.1-1.0); BUN/CREATININE RATIO 23; CARBON DIOXIDE 21 MMOL/L (21-32); CHLORIDE 107 MMOL/L (98-107); CREATININE SERUM 0.96 MG/DL (0.60-1.30); GFR ESTIMATED > 60; GLUCOSE 98 MG/DL (70-105); POTASSIUM 4.5 MMOL/L (3.6-5.0); SODIUM 136 MMOL/L (135-145); TOTAL PROTEIN 5.1 GM/DL (6.4-8.2)
[2018-09-17 06:55] LABS: LYMPHOCYTES % (MANUAL) 5 %; MONOCYTES % (MANUAL) 6 %; NEUTROPHILS % (MANUAL) 89 %
[2018-09-17 08:42] VITALS: BP 102/58
[2018-09-17] MEDS ORDERED: CEFEPIME 1,000 MG/SWFI 10 ML IV PUSH IV SCH ×2 (10:00)
[2018-09-17] MEDS ORDERED: cefTRIAXone FOR IV USE 1,000 MG in WATER (STERILE) FOR INJECTION 10 ML IV SCH ×2 (11:00→16:00)
[2018-09-17] MEDS ORDERED: MAG30ORA2 PO (11:26)
[2018-09-17] MEDS ORDERED: ACET325T38 PO (11:26)
--- NOTE | 2018-09-17 11:27 | NUR ---
UPDATED MED REC WITH ORDER SUMMARY REPORT FROM Astley Clarke RENTON
[2018-09-17 12:10] VITALS: BP 120/57
--- NOTE | 2018-09-17 14:15 | NUR ---
Pastoral care visit.
--- NOTE | 2018-09-17 14:35 | History & Physical-Hospitalist ---
History of Present Illness HPI/Chief Complaint The patient is a 77-year-old white male known to me from previous admission. He is mute. He was sent to the emergency room yesterday with an apparent urinary tract infection. This was confirmed. His white count is 24,300. microbiologyalled me early this morning and reported that he was growing gram- negative rods from his blood with an odor strongly suggesting Proteus. It is noted that by our most recent anti-BIogram this should be appropriate. Date Seen 09/17/18 Time Seen by a Provider: 14:32 Attending Physician Sariah Loyd MD PCP Hank Hernandez MD Referring Physician Date of Admission Sep 16, 2018 at 12:22 pm Home Medications & Allergies Home Medications Reviewed patient Home Medication Reconciliation performed by pharmacy medication reconciliations service desk technician and/or nursing. Patients Allergies have been reviewed. Allergies Allergies Coded Allergies Latex, Natural Rubber (Verified Allergy, Severe, RASH AND INFLAMMED, 09/16/18) Past Ujjncqt-Owyngk-Ffmpzi Hx Patient Social History Alcohol Use: Denies Use Recreational Drug Use: No (nonverbal) 2nd Hand Smoke Exposure: No Physical Abuse Screen: No (nonverbal) Sexual Abuse: No (nonverbal) Recent Foreign Travel: No Contact w/other who traveled: No Recent Hopitalizations: Yes (UTI/DIARRHEA) Recent Infectious Disease Expo: No Immunizations Up To Date Date of Pneumonia Vaccine: May 27, 2014 Date of Influenza Vaccine: May 27, 2014 Seasonal Allergies Seasonal Allergies: No Past Medical History Surgeries: Eye Surgery, Joint Replacement Respiratory: Pneumonia Cardiac: High Cholesterol, Hypertension Neurological: Dementia Reproductive: No Genitourinary: Bladder Infection, Kidney Stones Gastrointestinal: Chronic Constipation, Chronic Diarrhea, Gall Bladder Disease Musculoskeletal: Arthritis, Fractures HEENT: Cataract History of Blood Disorders: No Family History Alzheimer's disease 03 MOTHER Cataracts 09 BROTHER Family history: Diabetes mellitus 09 BROTHER GERD 09 BROTHER Hiatal hernia 03 MOTHER Hypertension 09 BROTHER Parkinson's disease 03 FATHER TIAs 03 FATHER Review of Systems Constitutional: see HPI EENTM: no symptoms reported Respiratory: no symptoms reported Cardiovascular: no symptoms reported Gastrointestinal: no symptoms reported Physical Exam Physical Exam Vital Signs Vital Signs - First Documented 09/16/18 09/17/18 11:00 08:42 Temp 96.5 Pulse 91 Resp 15 B/P (MAP) 136/70 (92) Pulse Ox 94 O2 Delivery Room Air O2 Flow Rate 0.00 Capillary Refill : Less Than 3 Seconds Height, Weight, BMI Height: 6'1.00" Weight: 163lbs. 7.0oz. 74.912757yp; 21.7 BMI Method:Estimated General Appearance: No Apparent Distress, WD/WN Eyes: Bilateral Eye Normal Inspection HEENT: Normal ENT Inspection Neck: Full Range of Motion, Normal Inspection, Non Tender Respiratory: Chest Non Tender, Lungs Clear, Normal Breath Sounds, No Accessory Muscle Use, No Respiratory Distress Cardiovascular: Regular Rate, Rhythm, No Edema, No Gallop, No JVD, No Murmur, Normal Peripheral Pulses Gastrointestinal: Normal Bowel Sounds, No Organomegaly, No Pulsatile Mass, Non Tender, Soft Extremity: Normal Capillary Refill, Normal Inspection, Normal Range of Motion, Non Tender, No Calf Tenderness, No Pedal Edema Neurologic/Psychiatric: Alert Skin: Normal Color, Warm/Dry Results Results/Procedures Labs Laboratory Tests 09/16/18 11:05 09/17/18 05:11 Patient resulted labs reviewed. Assessment/Plan Admission Diagnosis Urinary tract infection. Admission Status: Inpatient Order (span 2 midnights) Reason for Inpatient Admission: Bacteremia Clinical Quality Measures DVT/VTE Risk/Contraindication: Risk Factor Score Per Nursin RFS Level Per Nursing on Admit: 4+=Very High SONIA TEJEDA MD Sep 17, 2018 2:35 pm
[2018-09-17 15:49] VITALS: BP 131/74
[2018-09-17 20:36] VITALS: BP 134/75
[2018-09-18 00:45] VITALS: BP 139/65
[2018-09-18 04:14] VITALS: BP 118/57
[2018-09-18] MEDS: D5 1/2 NS W/KCL 20 MEQ/L 1,000 ML IV SCH ×2 (06:38→13:00)
[2018-09-18 07:58] VITALS: BP 144/63
[2018-09-18 11:33] VITALS: BP 147/72
--- NOTE | 2018-09-18 12:24 | Progress Note-Hospitalist ---
Progress Note Progress Notes/Assess & Plan Date Seen 09/18/18 Time Seen by Provider: 12:23 Assessment & Plan The patient looks better today. He does not follow commands. His mentation is not clear. He is known to be mute. His Proteus is sensitive to multiple oral medications and accordingly he will be sent out on Augmentin. Physical exam: He is alert but does not respond by word or gesture. Lungs are clear to auscultation. CV is regular without murmur. Abdomen is soft. Extremities show no pedal edema. Impression: Urinary tract infection with Proteus mirabilis. Focused Exam Lactate Level 09/16/18 11:59: Lactic Acid Level 1.89 SONIA TEJEDA MD Sep 18, 2018 12:24
[2018-09-18] MEDS ORDERED: AMOX-358 PO (12:25)
--- NOTE | 2018-09-18 12:28 | Discharge Inst-Simple/Standard ---
Discharge Inst-Standard Discharge Medications New, Converted or Re-Newed RX: Transmitted to Pharmacy Patient Instructions/Follow Up Plan of Care/Instructions/FU: Antibiotics to complete course of treatment for urinary tract infection. Activity as Tolerated: Yes Goal: Return to previous status Discharge Diet: Regular Diet SONIA TEJEDA MD Sep 18, 2018 12:28
--- NOTE | 2018-09-18 12:46 | NUR ---
CM/SS patient will discharge this day back to [facility] ID facility [facility]. [facility] has been faxed discharge information, they will transport this day. Nursing updated.
--- NOTE | 2018-09-18 13:03 | NUR ---
REPORT CALL[facility] TO [facility]
[2018-09-18 13:05] VITALS: BP 147/72
== END 2018-09-18 13:05 | DRG 690 ==
LOC: ER 11:00 → EDUNIT# 11:00 → 4TH 12:22
PROVIDERS: ADMIT Family Medicine; ATTEND Family Medicine
DX: N39.0 Urinary tract infection, site not specified (principal); B96.4 Proteus (mirabilis) (morganii) as the cause of diseases classified elsewhere; E86.0 Dehydration; H91.3 Deaf nonspeaking, not elsewhere classified; I10 Essential (primary) hypertension; E78.00 Pure hypercholesterolemia, unspecified; M19.91 Primary osteoarthritis, unspecified site; F03.90 Unspecified dementia, unspecified severity, without behavioral disturbance, psychotic disturbance, mood disturbance, and anxiety; K59.09 Other constipation
CPT/HCPCS: 36415; 51702; 71045; 80053; 81000; 83605; 85007; 85025; 85027; 85610; 85730; 87040; 87077; 87088; 87186; 93005; 96361; 96365